=== PATIENT | female | born 1945 | race Caucasian/White ===

== ENCOUNTER 2017-04-06 16:54 | Emergency (ER) | payer MEDICARE, OTHER ==
[~2017-04-06] VITALS: Ht 167.6 cm; Wt 90.3 kg
[~2017-04-06 16:54] MED LIST: ACET500 PO; ALPR1 PO; AMLO5 PO; ASCO500 PO; ASPI325; ASPI325 PO; ASPI81CH; ASPI81CH PO; ATOR10; BIOTIN1 GM MC; CALCAVITD PO; CARV3.125; CHOL10002 PO; CILO50 PO; CLOB.05TC; CLOP75; CLOP75 PO; CYAN1000 PO; CYAN1000I PO; CYAN500; CYAN500 PO; Cranberry300 MG PO; DIPASPER; DIPH50 PO; DOC250; DOCU100; DONE5; ESTRACE CREAM; FENO160; FENOFIBRATE; FERR325; FISH1000 PO; FLUO20; FLUO20 PO; FOLI1; FOLI400 PO; FURO20; HYDACE10B PO; HYDACE5 PO; HYDHCL25; HYDMOR2 PO; HYDR1TAB94 PO; IBUP400 PO; INSR10I; INSUASPI; INSUASPI SC; INSULANI; INSULANI SC; INSULANPEN INJ; INSULANPEN SC; IRON150C PO; Isosorbide Dini30 MG; LANTUS; LANTUS SUBD; LEVFLO500; LEVOXYL; LEVSOD100; LEVSOD125; LEVSOD125 PO; LEVSOD150 PO; LISI10; LORA.5 PO; LORA1 PO; LOSA50 PO; MAGOXI400 PO; MEGA BIOTIN10000 MCG PO; METF500; METO10; METO5A; MORP30; MORP30 PO; MORP60ER PO; MS CONTIN; NEBI10; NEBI5; NEBI5 PO; NITR.6SL PO; NITR100CA PO; NULEV; Nitrostat0.4 MG SL; Non-Aspirin Ex500 MG PO; Norco 5-325 Ta1 EACH PO; Novolog Fl100 UNIT/1 INJ; OMEP20ER; OMEP20ER PO; ONDA4ODT MM; ONDA4ODT SL; OXYC10TA19 PO; OXYC1TAB11 PO; PANT40 PO; POTASSIUM GLUCONATE; POTCHL20ER; PRAM.125; PROM25 PO; QUET25 PO; VENL150ER PO; VENL25 PO; VITAMIN B12 2500 MCG PO; VITNEPH PO; ZOLP10
[2017-04-06] MEDS ORDERED: SERT50 PO (18:07)
[2017-04-06] MEDS ORDERED: NITR.4SL SL (18:08)
[2017-04-06] MEDS ORDERED: Robaxin500 MG PO (18:32)
[2017-04-06] MEDS ORDERED: Norco 5-325 Ta1 EACH PO (18:32)
[2017-10-22] MEDS ORDERED: ANTACID CHEWAB1 EACH PO (12:26)
[2017-10-22] MEDS ORDERED: CYAN500 PO (12:27)
[2017-10-22] MEDS ORDERED: BIOTIN5000 MCG PO (12:27)
[2017-10-22] MEDS ORDERED: Hydrocodone-Ap1 EA23 PO (12:29)
[2017-10-22] MEDS ORDERED: Revlimid10 MG PO (12:30)
[2017-10-22] MEDS ORDERED: INSULANPEN PO ×2 (12:31→15:57)
[2017-10-22] MEDS ORDERED: TERA5 PO (12:31)
[2017-10-22] MEDS ORDERED: NITR.4SL SL (12:32)
[2017-10-22] MEDS ORDERED: IBU400 MG PO (15:58)
[2017-10-27] MEDS ORDERED: ASCO500 PO (13:02)
[2017-10-27] MEDS ORDERED: CLOP75 PO (13:02)
[2017-10-27] MEDS ORDERED: CARV6.25 PO (13:03)
[2017-10-27] MEDS ORDERED: Ferrous Sulfat325 M2 PO (13:08)
[2018-03-04] MEDS ORDERED: HYDCHL25 PO (19:20)
[2018-03-04] MEDS ORDERED: Isosorbide Dini30 MG PO (19:21)
== END 2017-04-06 20:04 | disposition home or self-care (01) ==
LOC: ER 16:54
DX: S32.10XA Unspecified fracture of sacrum, initial encounter for closed fracture (principal); E11.9 Type 2 diabetes mellitus without complications; I25.10 Atherosclerotic heart disease of native coronary artery without angina pectoris; Z79.899 Other long term (current) drug therapy; Z79.4 Long term (current) use of insulin; Z79.82 Long term (current) use of aspirin; Z91.041 Radiographic dye allergy status; Z88.0 Allergy status to penicillin; Z88.8 Allergy status to other drugs, medicaments and biological substances; Z86.73 Personal history of transient ischemic attack (TIA), and cerebral infarction without residual deficits; Z90.49 Acquired absence of other specified parts of digestive tract; Z90.89 Acquired absence of other organs; Z87.891 Personal history of nicotine dependence; W19.XXXA Unspecified fall, initial encounter
CPT/HCPCS: 72100; 72170; 96372; 99283; J1885

== ENCOUNTER 2017-04-24 22:54 | Inpatient (IN) | payer MEDICARE, OTHER ==
[~2017-04-24] VITALS: Ht 167.6 cm; Wt 83.9 kg
[~2017-04-24 22:54] MED LIST changes: +NITR.4SL SL; +Robaxin500 MG PO; +SERT50 PO
[2017-04-25 00:40] LABS: Calcium, Ionized (POC) 1.03 mmol/L (1.10-1.46); Chloride (POC) 93 mmol/L (98-108); Creatinine (POC) 1.3 mg/dL (0.6-1.0); Glucose (ISTAT POC) 210 mg/dL (70-99); Hemoglobin (POC) 13.6 g/dL (12.0-16.0); Potassium (POC) 3.8 mmol/L (3.5-5.5); Sodium (POC) 126 mmol/L (135-148); Total CO2 (POC) 21 mmol/L (21-32)
[2017-04-25 00:42] LABS: BASOPHILS ABSOLUTE AUTO 0.16 K/mm3 (0.00-0.23); BASOPHILS PERCENT AUTO 1 % (0-2); EOSINOPHILS ABSOLUTE AUTO 0.04 K/mm3 (0.00-0.68); EOSINOPHILS PERCENT AUTO 0 % (0-6); Hematocrit 36.7 % (33.0-51.0); Hemoglobin 12.4 g/dL (11.5-16.0); IMMATURE GRAN ABSOLUTE AUTO 0.15 K/mm3 (0.00-0.10); IMMATURE GRAN PERCENT AUTO 1 % (0-1); LYMPHOCYTES ABSOLUTE AUTO 2.53 K/mm3 (0.84-5.20); LYMPHOCYTES PERCENT AUTO 15 % (21-46); MONOCYTES ABSOLUTE AUTO 1.36 K/mm3 (0.16-1.47); MONOCYTES PERCENT AUTO 8 % (4-13); Mean Corpuscular HGB 27.1 pg (26.0-34.0); Mean Corpuscular HGB Conc 33.8 g/dL (31.5-36.5); Mean Corpuscular Volume 80 fL (80-100); Mean Platelet Volume 9.4 fL (9.1-12.4); NEUTROPHILS ABSOLUTE AUTO 12.91 K/mm3 (1.96-9.15); NEUTROPHILS PERCENT AUTO 75 % (41-73); RDW Coefficient Variation 13.7 % (11.7-14.2); RDW Standard Deviation 39.3 fL (35.1-46.3); Red Blood Cell Count 4.57 M/mm3 (3.80-5.20); White Blood Cell Count 17.15 K/mm3 (4.00-11.30)
[2017-04-25 00:43] LABS: Platelet Count 1015 K/mm3 (150-400)
[2017-04-25 00:55] LABS: Albumin, Blood 3.9 g/dL (3.4-5.0); Albumin/Globulin Ratio 0.9 (0.8-1.8); Bilirubin, Total 0.4 mg/dL (0.1-1.0); Bun/Creatinine Ratio 19.4 (12.0-20.0); Calcium, Blood 9.7 mg/dL (8.5-10.1); Creatinine, Blood 1.08 mg/dL (0.40-1.00); Globulin, Blood 4.2 g/dL (2.2-4.0); Potassium, Blood 3.8 mmol/L (3.5-5.5); Total Protein, Blood 8.1 g/dL (6.4-8.2)
[2017-04-25] MEDS ORDERED: IBUPROFEN200 MG PO (01:07)
[2017-04-25 14:39] LABS: Source, Urine Clean Catch
[2017-04-25 14:43] LABS: Bilirubin, Urine Neg (Neg); Blood, Urine 2+ (Neg); Glucose Qualitative, Urine Neg (Neg); Ketones, Urine Neg (Neg); Leukocyte Esterase, Urine 2+ (Neg); Nitrite, Urine Neg (Neg); Protein, Urine 2+ (Neg); Specific Gravity, Urine 1.015 (1.003-1.022); Urobilinogen, Urine NORM (Normal)
[2017-04-25 14:49] LABS: Appearance, Urine Clear (Clear); Color, Urine Yellow (P-Yellow)
[2017-04-25 14:50] LABS: Bacteria Many /hpf; Red Blood Cells, Urine 0-2 /hpf (0-2); Squamous Epithelial Cells Few /hpf (Few); White Blood Cells, Urine 25-50 /hpf (0-5)
[2017-04-27 05:02] LABS: BASOPHILS ABSOLUTE AUTO 0.18 K/mm3 (0.00-0.23); BASOPHILS PERCENT AUTO 1 % (0-2); EOSINOPHILS ABSOLUTE AUTO 0.14 K/mm3 (0.00-0.68); EOSINOPHILS PERCENT AUTO 1 % (0-6); Hematocrit 35.6 % (33.0-51.0); Hemoglobin 11.5 g/dL (11.5-16.0); IMMATURE GRAN ABSOLUTE AUTO 0.07 K/mm3 (0.00-0.10); IMMATURE GRAN PERCENT AUTO 1 % (0-1); LYMPHOCYTES ABSOLUTE AUTO 1.54 K/mm3 (0.84-5.20); LYMPHOCYTES PERCENT AUTO 11 % (21-46); MONOCYTES ABSOLUTE AUTO 1.05 K/mm3 (0.16-1.47); MONOCYTES PERCENT AUTO 7 % (4-13); Mean Corpuscular HGB 27.5 pg (26.0-34.0); Mean Corpuscular HGB Conc 32.3 g/dL (31.5-36.5); Mean Platelet Volume 9.2 fL (9.1-12.4); NEUTROPHILS ABSOLUTE AUTO 11.73 K/mm3 (1.96-9.15); NEUTROPHILS PERCENT AUTO 80 % (41-73); Platelet Count 792 K/mm3 (150-400); RDW Standard Deviation 43.7 fL (35.1-46.3); Red Blood Cell Count 4.18 M/mm3 (3.80-5.20); White Blood Cell Count 14.71 K/mm3 (4.00-11.30)
[2017-04-27 05:04] LABS: Mean Corpuscular Volume 85 fL (80-100)
[2017-04-27 05:37] LABS: Anion Gap 6 mmol/L (6-16); Blood Urea Nitrogen 19 mg/dL (8-24); Bun/Creatinine Ratio 21.5 (12.0-20.0); CO2, Blood 28 mmol/L (21-32); Calcium, Blood 8.7 mg/dL (8.5-10.1); Chloride, Blood 99 mmol/L (98-108); Creatinine, Blood 0.88 mg/dL (0.40-1.00); Glomerular Filtration Rate >60 (60-); Glucose, Blood 113 mg/dL (70-99); Potassium, Blood 3.8 mmol/L (3.5-5.5); Sodium, Blood 133 mmol/L (136-145)
[2017-04-30] MEDS ORDERED: Amlodipine Bes2.5 MG PO (12:57)
[2017-04-30] MEDS ORDERED: ASPI81CH PO (12:58)
[2017-04-30] MEDS ORDERED: Miacalcin I200 IU/ML IM (12:59)
[2017-04-30] MEDS ORDERED: FENT50TP TOP (13:00)
[2017-04-30] MEDS ORDERED: CIPR250 PO (13:00)
[2017-04-30] MEDS ORDERED: LEVEMIR FL100 UNIT/1 SC (13:01)
[2017-04-30] MEDS ORDERED: METO5A PO (13:03)
[2017-04-30] MEDS ORDERED: LEVSOD125 PO (13:03)
[2017-04-30] MEDS ORDERED: SENN187 PO (13:04)
[2017-04-30] MEDS ORDERED: Docusate Sodiu100 M1 PO (13:05)
[2017-10-22] MEDS ORDERED: ANTACID CHEWAB1 EACH PO (12:26)
[2017-10-22] MEDS ORDERED: CYAN500 PO (12:27)
[2017-10-22] MEDS ORDERED: BIOTIN5000 MCG PO (12:27)
[2017-10-22] MEDS ORDERED: Hydrocodone-Ap1 EA23 PO (12:29)
[2017-10-22] MEDS ORDERED: Revlimid10 MG PO (12:30)
[2017-10-22] MEDS ORDERED: TERA5 PO (12:31)
[2017-10-22] MEDS ORDERED: INSULANPEN PO ×2 (12:31→15:57)
[2017-10-22] MEDS ORDERED: NITR.4SL SL (12:32)
[2017-10-22] MEDS ORDERED: IBU400 MG PO (15:58)
[2017-10-27] MEDS ORDERED: ASCO500 PO (13:02)
[2017-10-27] MEDS ORDERED: CLOP75 PO (13:02)
[2017-10-27] MEDS ORDERED: CARV6.25 PO (13:03)
[2017-10-27] MEDS ORDERED: Ferrous Sulfat325 M2 PO (13:08)
[2018-03-04] MEDS ORDERED: HYDCHL25 PO (19:20)
[2018-03-04] MEDS ORDERED: Isosorbide Dini30 MG PO (19:21)
== END 2017-04-30 13:34 | disposition home health service (06) | DRG 552 ==
LOC: ER 22:54 → MEDS 04-25 01:20 → ENPENDDIS 04-30 10:00 → MEDS 04-30 13:34
PROVIDERS: Emergency Medicine; Internal Medicine
PROC: 3E0234Z Introduction of Serum, Toxoid and Vaccine into Muscle, Percutaneous Approach (ICD-10-PCS; principal; 2017-04-25)
DX: S32.031A Stable burst fracture of third lumbar vertebra, initial encounter for closed fracture (principal); E11.22 Type 2 diabetes mellitus with diabetic chronic kidney disease; E11.40 Type 2 diabetes mellitus with diabetic neuropathy, unspecified; S32.19XA Other fracture of sacrum, initial encounter for closed fracture; N39.0 Urinary tract infection, site not specified; E87.1 Hypo-osmolality and hyponatremia; E11.51 Type 2 diabetes mellitus with diabetic peripheral angiopathy without gangrene; F03.90 Unspecified dementia, unspecified severity, without behavioral disturbance, psychotic disturbance, mood disturbance, and anxiety; W01.0XXA Fall on same level from slipping, tripping and stumbling without subsequent striking against object, initial encounter; Y92.009 Unspecified place in unspecified non-institutional (private) residence as the place of occurrence of the external cause; E78.5 Hyperlipidemia, unspecified; I25.10 Atherosclerotic heart disease of native coronary artery without angina pectoris; B96.89 Other specified bacterial agents as the cause of diseases classified elsewhere; Z23 Encounter for immunization; F32.9 Major depressive disorder, single episode, unspecified; F41.9 Anxiety disorder, unspecified; M79.7 Fibromyalgia; R33.9 Retention of urine, unspecified; D47.3 Essential (hemorrhagic) thrombocythemia; I12.9 Hypertensive chronic kidney disease with stage 1 through stage 4 chronic kidney disease, or unspecified chronic kidney disease; N18.3 Chronic kidney disease, stage 3 (moderate)
CPT/HCPCS: 36415; 70450; 74176; 74220; 80047; 80048; 80053; 81001; 82947; 85014; 85025; 87077; 87086; 87186; 92610; 96361; 96374; 96375; 97110; 97116; 97163; 97165; 97530; 97535; 99285; G8978; G8979; G8987; G8988; J0360; J0630; J1170; J1650; J1815; J2405; J2765; J3010; J7030; J7120

== ENCOUNTER 2017-09-07 05:09 | Emergency (ER) | payer MEDICARE, OTHER ==
[~2017-09-07] VITALS: Ht 167.6 cm; Wt 83.5 kg
[~2017-09-07 05:09] MED LIST changes: +Amlodipine Bes2.5 MG PO; +CIPR250 PO; +Docusate Sodiu100 M1 PO; +FENT50TP TOP; +IBUPROFEN200 MG PO; +LEVEMIR FL100 UNIT/1 SC; +METO5A PO; +Miacalcin I200 IU/ML IM; +SENN187 PO
[2017-09-07 05:41] LABS: BASOPHILS ABSOLUTE AUTO 0.13 K/mm3 (0.00-0.23); BASOPHILS PERCENT AUTO 1 % (0-2); EOSINOPHILS ABSOLUTE AUTO 0.22 K/mm3 (0.00-0.68); EOSINOPHILS PERCENT AUTO 2 % (0-6); Hemoglobin 11.7 g/dL (11.5-16.0); IMMATURE GRAN ABSOLUTE AUTO 0.04 K/mm3 (0.00-0.10); IMMATURE GRAN PERCENT AUTO 0 % (0-1); LYMPHOCYTES ABSOLUTE AUTO 1.27 K/mm3 (0.84-5.20); LYMPHOCYTES PERCENT AUTO 14 % (21-46); MONOCYTES ABSOLUTE AUTO 0.87 K/mm3 (0.16-1.47); MONOCYTES PERCENT AUTO 9 % (4-13); Mean Corpuscular HGB Conc 31.6 g/dL (31.5-36.5); Mean Corpuscular Volume 85 fL (80-100); NEUTROPHILS ABSOLUTE AUTO 6.76 K/mm3 (1.96-9.15); NEUTROPHILS PERCENT AUTO 73 % (41-73); Platelet Count 572 K/mm3 (150-400); RDW Coefficient Variation 14.6 % (11.7-14.2); RDW Standard Deviation 45.4 fL (35.1-46.3); Red Blood Cell Count 4.34 M/mm3 (3.80-5.20); White Blood Cell Count 9.29 K/mm3 (4.00-11.30)
[2017-09-07 06:05] LABS: Alanine Aminotransfer (ALT/SGP 22 U/L (12-78); Albumin, Blood 3.7 g/dL (3.4-5.0); Albumin/Globulin Ratio 1.1 (0.8-1.8); Alk Phos 94 U/L (50-136); Anion Gap 9 mmol/L (6-16); Aspartate Aminotrans (AST/SGOT 18 U/L (12-37); Bilirubin, Total 0.3 mg/dL (0.1-1.0); Blood Urea Nitrogen 15 mg/dL (8-24); Bun/Creatinine Ratio 16.1 (12.0-20.0); CO2, Blood 27 mmol/L (21-32); Calcium, Blood 8.7 mg/dL (8.5-10.1); Chloride, Blood 104 mmol/L (98-108); Creatinine, Blood 0.93 mg/dL (0.40-1.00); Globulin, Blood 3.5 g/dL (2.2-4.0); Glomerular Filtration Rate >60 (60-); Glucose, Blood 67 mg/dL (70-99); Potassium, Blood 3.1 mmol/L (3.5-5.5); Sodium, Blood 140 mmol/L (136-145); Total Protein, Blood 7.2 g/dL (6.4-8.2)
[2017-09-07 06:49] LABS: Source, Urine Clean Catch
[2017-09-07 07:00] LABS: Bilirubin, Urine Neg (Neg); Blood, Urine Neg (Neg); Glucose Qualitative, Urine Neg (Neg); Ketones, Urine Neg (Neg); Leukocyte Esterase, Urine Neg (Neg); Nitrite, Urine Neg (Neg); Protein, Urine Neg (Neg); Urobilinogen, Urine NORM (Normal); pH, Urine 6.5 (5.0-8.0)
[2017-09-07 07:04] LABS: Appearance, Urine Clear (Clear); Color, Urine Yellow (P-Yellow)
== END 2017-09-07 08:40 | disposition home or self-care (01) ==
LOC: ER 05:09
PROVIDERS: Emergency Medicine
DX: E11.649 Type 2 diabetes mellitus with hypoglycemia without coma (principal); E87.6 Hypokalemia; E78.00 Pure hypercholesterolemia, unspecified; I10 Essential (primary) hypertension; F32.9 Major depressive disorder, single episode, unspecified; F41.9 Anxiety disorder, unspecified; I25.10 Atherosclerotic heart disease of native coronary artery without angina pectoris; Z88.0 Allergy status to penicillin; Z88.8 Allergy status to other drugs, medicaments and biological substances; Z91.09 Other allergy status, other than to drugs and biological substances; Z79.4 Long term (current) use of insulin; Z79.899 Other long term (current) drug therapy; Z79.82 Long term (current) use of aspirin; Z87.891 Personal history of nicotine dependence; Z86.73 Personal history of transient ischemic attack (TIA), and cerebral infarction without residual deficits
CPT/HCPCS: 80053; 81003; 82947; 85025

== ENCOUNTER 2017-10-31 06:11 | Emergency (ER) | payer MEDICARE, OTHER ==
[~2017-10-31] VITALS: Ht 167.6 cm; Wt 81.2 kg
[~2017-10-31 06:11] MED LIST changes: +ANTACID CHEWAB1 EACH PO; +BIOTIN5000 MCG PO; +CARV6.25 PO; +Ferrous Sulfat325 M2 PO; +Hydrocodone-Ap1 EA23 PO; +IBU400 MG PO; +INSULANPEN PO; +Revlimid10 MG PO; +TERA5 PO
[2017-10-31 06:40] LABS: BASOPHILS ABSOLUTE AUTO 0.29 K/mm3 (0.00-0.23); BASOPHILS PERCENT AUTO 3 % (0-2); EOSINOPHILS ABSOLUTE AUTO 0.56 K/mm3 (0.00-0.68); EOSINOPHILS PERCENT AUTO 7 % (0-6); Hematocrit 27.9 % (33.0-51.0); Hemoglobin 8.8 g/dL (11.5-16.0); IMMATURE GRAN ABSOLUTE AUTO 0.03 K/mm3 (0.00-0.10); IMMATURE GRAN PERCENT AUTO 0 % (0-1); LYMPHOCYTES ABSOLUTE AUTO 1.46 K/mm3 (0.84-5.20); LYMPHOCYTES PERCENT AUTO 17 % (21-46); MONOCYTES ABSOLUTE AUTO 1.25 K/mm3 (0.16-1.47); MONOCYTES PERCENT AUTO 15 % (4-13); Mean Corpuscular HGB 27.2 pg (26.0-34.0); Mean Corpuscular HGB Conc 31.5 g/dL (31.5-36.5); Mean Corpuscular Volume 86 fL (80-100); Mean Platelet Volume 9.8 fL (9.1-12.4); NEUTROPHILS ABSOLUTE AUTO 4.89 K/mm3 (1.96-9.15); NEUTROPHILS PERCENT AUTO 58 % (41-73); Platelet Count 679 K/mm3 (150-400); RDW Coefficient Variation 16.2 % (11.7-14.2); RDW Standard Deviation 50.5 fL (35.1-46.3); Red Blood Cell Count 3.23 M/mm3 (3.80-5.20); White Blood Cell Count 8.48 K/mm3 (4.00-11.30)
[2017-10-31 07:00] LABS: Albumin, Blood 3.1 g/dL (3.4-5.0); Albumin/Globulin Ratio 0.8 (0.8-1.8); Bilirubin, Total 0.3 mg/dL (0.1-1.0); Bun/Creatinine Ratio 18.7 (12.0-20.0); Calcium, Blood 8.3 mg/dL (8.5-10.1); Creatinine, Blood 1.07 mg/dL (0.40-1.00); Globulin, Blood 3.8 g/dL (2.2-4.0); Total Protein, Blood 6.9 g/dL (6.4-8.2); Troponin I 0.128 ng/mL (0.000-0.040)
== END 2017-10-31 08:20 | disposition home or self-care (01) ==
LOC: ER 06:11
PROVIDERS: Emergency Medicine
DX: R07.9 Chest pain, unspecified (principal); D64.9 Anemia, unspecified; E11.9 Type 2 diabetes mellitus without complications; I10 Essential (primary) hypertension; E78.00 Pure hypercholesterolemia, unspecified; I25.2 Old myocardial infarction; Z88.0 Allergy status to penicillin; Z88.8 Allergy status to other drugs, medicaments and biological substances; Z91.09 Other allergy status, other than to drugs and biological substances; Z79.899 Other long term (current) drug therapy; Z79.82 Long term (current) use of aspirin; Z79.4 Long term (current) use of insulin; Z86.73 Personal history of transient ischemic attack (TIA), and cerebral infarction without residual deficits; Z87.891 Personal history of nicotine dependence
CPT/HCPCS: 36415; 71046; 80053; 84484; 85025; 93005; 93010; 96374; 99285-25; J3010

== ENCOUNTER 2018-04-10 06:13 | Day surgery (SDC) | payer MEDICARE, OTHER ==
[~2018-04-10] VITALS: Ht 165.1 cm; Wt 79.0 kg
[~2018-04-10 06:13] MED LIST changes: +BIOTIN10000 MC1 PO; -BIOTIN5000 MCG PO; +HYDCHL25 PO; +Hytrin2 MG PO; +Isosorbide Dini30 MG PO; +LOSARTAN POTAS100 MG PO; -TERA5 PO; +VITAMIN B-125000 MC2 PO
--- NOTE | 2018-04-10 11:00 | NUR ---
PT RETURNED TO RECOVERY ROOM ON BED. PT IS A&O X 3. PT DENIES CHEST PAIN. LEFT FEMORAL GROIN SITE SOFT NON-TENDER WITH NO HEMATOMA, NO BLEEDING WITH INTACT DRESSING. PT UP ON BED TINSLEY TO VOID. CALL LIGHT IN REACH.
--- NOTE | 2018-04-10 11:25 | NUR ---
PT C/O 10/10 RIGHT POSTERIOR LEG PAIN, VERBAL ORDER FROM DR. LOWRY RECIEVED FOR FENTANYL PRN PAIN MANAGEMENT. REPORT TO SARA URIBE RN FOR THIS RN LUNCH BREAK.
[2018-04-10] MEDS ORDERED: ASPI325 PO (11:43)
--- NOTE | 2018-04-10 12:11 | NUR ---
RESUMED CARE OF PT AT THIS TIME. PT APPEARS MORE RELAXED AT THIS TIME, RESTING SUPINE WITH BED IN REVERSE TRENDELENBERG POSITION. EYES CLOSED. AT BEDSIDE. WILL CONTINUE TO MONITOR.
--- NOTE | 2018-04-10 13:35 | NUR ---
PT MEDICATED WITH FENTANYL 50 MCG IVP FOR PAIN TO RLE. DR. LOWRY PREVIOUSLY TO BEDSIDE TO EVALUATE RIGHT LEG. PLAN IS TO TAKE PT BACK INTO SUPPLY SERVICE WORKER FOR REPEAT PERIPHERAL ANGIOGRAM. FAN RUNNER SURGEON PAGED FOR CONSULT ON PATIENT. RLE REMAINS SWOLLEN, FIRM, AND WARM TO TOUCH. DP/PT PULSES FOUND WITH DOPPLER. PT DENIES "BURNING" SENSATION SHE PREVIOUSLY C/O. WILL CONTINUE TO MONITOR.
--- NOTE | 2018-04-10 15:54 | NUR ---
ICU ADMIT PT ARRIVES TO ICU 12 AT 1525 FROM [facility], ACCOMPANIED BY [facility] RN AND TECH. PT HAS 2 ACCESS SITES TO LEFT GROIN WHICH HAVE MYNX CLOSURE DEVICES IN PLACE. SITE SOFT, NONTENDER, NO BLEEDING/BRUISING/HEMATOMA FORMATION. PT'S RIGHT LEG SLIGHTLY PINK, WARM TO TOUCH, DP PULSE VIA DOPPLER MARKED FOR FUTURE ASSESSMENTS. PT'S RIGHT CALF FIRM TO TOUCH. PT ABLE TO FLEX AND EXTEND FOOT AND ROTATE IT SIDE TO SIDE. PT HAS NUMBNESS/TINGLING TO LOWER EXTREMITIES AT BASELINE. DR. Lujan TO BEDSIDE, STATES DR. HAIR HAS BEEN CONSULTED TO MONITOR RLE. DR. HAIR TO BEDSIDE SHORTLY AFTER ARRIVAL TO UNIT - STATES TO MONITOR FOR INABILITY TO MOVE FOOT, LOSS OF PULSE, SIGNIFICANT CHANGE IN COLOR TO EXTREMITY. PT HAS PIV SALINE LOCKED. PT'S TO BEDSIDE. WILL CONTINUE TO MONITOR GROIN SITES AND R LEG FOR CHANGES.
--- NOTE | 2018-04-10 18:00 | NUR ---
SHIFT SUMMARY PT STABLE SINCE ARRIVAL FROM [facility]. LEFT GROIN ACCESS SITES WITHOUT BLEEDING OR BRUISING. RIGHT CALF REMAINS TIGHT, WARM TO TOUCH. TIGHTNESS DOES NOT APPEAR TO BE INCREASING. PT DENIES INCREASED PAIN. PT CONTINUES TO BE ABLE TO MOVE FOOT, PULSES REMAIN PALPABLE TO FOOT. RIGHT LOWER LEG ELEVATED ON PILLOWS. VITAL SIGNS STABLE, THOUGH PT DID SPIKE FEVER THIS EVENING. DR. Lujan NOTIFIED - PT MED WITH [facility] FOR PAIN, WHICH THE INCLUDED ACETAMINOPHEN SHOULD ADDRESS FEVER. EXTRA BLANKETS REMOVED FROM PAIN. PT USES CALL LIGHT FOR NEEDS. REMAINS ON BEDREST UNTIL 2100 PER ORDERS. WILL CONTINUE TO MONITOR PT AND GIVE HANDOFF REPORT TO ONCOMING RN WHEN AVAILABLE.
--- NOTE | 2018-04-10 19:00 | NUR ---
ASSUMED CARE ASSUMED CARE FROM NEGRITA. PT RESTING QUIELTY. RIGHT LEG ELEVATED. CALF FIRM AND WARM TO TOUCH. PT ABLE TO FLEX AND EXTEND FOOT. ALSO, ABLE TO MOVE FOOT SIDE TO SIDE. LEFT GROIN SITE STABE. SOFT TO PALP. NO BLEEDING OR HEMATOMA. FAMILY AT BEDSIDE.
--- NOTE | 2018-04-10 20:01 | NUR ---
ASSESSMENT PT LAYING IN BED WITH FAMILY AT BEDSIDE. REPORTS PAIN 6/10 TO RIGHT SHOULDER AND HIPS. PT STATES,"IT IS SO MUCH BETTER THAN BEFORE SHE GAVE ME THOSE MEDS. IT IS A CONSTANT PAIN THAT I DEAL WITH ALL THE TIME". LUNGS CLEAR ON 1 LITER O2 VIA NC. RESP EVEN AND NONLABORED. HEART RATE REGULAR, BP STABLE. DENIES CHEST PAIN OR PRESSURE. BT+ ABD SOFT AND NONTENDER, PT STATES,"I HAVE NAUSEA OFF AND ON ALL THE TIME. IT IS NORMAL FOR ME, BUT I'M DOING ALRIGHT RIGHT NOW". LEFT GROIN STABLE AND SOFT TO PALP. NO BLEEDING OR HEMATOMA. IV TO LEFT AC SALINE LOCKED, SITE CLEAR. RIGHT LEG WARM TO TOUCH AND SLIGHTLY PINK TO CALF. CALF FIRM TO TOUCH. PT NANETTE TO FLEX AND EXTEND FOOT. MOVES FOR SIDE TO SIDE. REPORTS NUMBNESS AND TIMGLING TO BILAT LOWER EXT AT BASELINE. PEDAL PULSES PER DOPPLER NO CHANGE FROM CONFIRMING WITH DAYS RN. RIGHT LEG ELEVATED ON TWO PILLOWS. WILL CONT TO MONITOR LEFT GROIN SITE AND RIGHT LEG FOR CHANGES.
--- NOTE | 2018-04-10 20:49 | NUR ---
HS MEDS BLOOD GLUCOSE 218, INSULIN GIVEN. HS MEDS GIVEN. LEFT GROIN STABLE. ELEVATED HOB 10 DEGREES. RIGHT CALF REMAINS WARM TO TOUCH AND FIRM. PT MOVING FOOT FLEX AND EXTENTION. MOVES FOOT SIDE TO SIDE. SON AT BEDSIDE. PT ASKED,"IS THAT A CAT OUT THERE"? POINTS TO NURSES STATION. EXPLAINED THAT THERE IS NO CAT OR DOGS IN THE ICU. PT STATES,"I THOUGHT I SAW A CAT A LITTLE WHILE AGO". PT WITH HX DEMENTIA. SON AT BEDSIDE
--- NOTE | 2018-04-10 22:34 | NUR ---
GROIN CHECK PT SLEEPING WITH RIGHT LEG ELEVATED ON TWO PILLOWS. PT AWAKENS EASILY. C/O NAUSEA, REQUESTED CRACKERS-GIVEN. ASSISTED WITH BEDPAN. PT OVER FLOWED BED TINSLEY. IVAN CARE AND LINEN CHANGE DONE. LEFT GROIN STABLE, SOFT TO PALP. NO BLEEDING OR HEMATOMA. RIGHT CALF FIRM AND WARM TO TOUCH. PT ABLE TO MOVE FOOT SIDE TO SIDE, FLEX AND EXTEND. PEDAL PULSES PER DOPPLER.
--- NOTE | 2018-04-10 22:45 | NUR ---
CALL TO DR MORTON REGARDING NAUSEA. ORDER RECEIVED FOR ZOFRAN
--- NOTE | 2018-04-10 22:58 | NUR ---
ZOFRAN PT MED WITH ZOFRAN FOR NAUSEA. PT STATES,"IT IS STILL KIND OF THERE BUT THE CRACKERS HELPED".
--- NOTE | 2018-04-10 23:50 | NUR ---
REASSESSMENT PT SLEEPING WITH SON AT BEDSIDE. PT AWAKENS EASILY. DENIES PAIN OR NAUSEA AT THIS TIME. LUNGS CLEAR ON 1 LITER O2 VIA NC. RESP EVEN AND NONLABORED. DENIES SOB OR COUGH. HEART RATE REGULAR. BP STABLE. BT+ ABD SOFT AND NONTENDER. LEFT GROIN STABLE, NO BLEEDING OR HEMATOMA. RIGHT CALF WARM AND FIRM TO TOUCH. DECREASED FIRMNESS NOTED TO CALF FROM PREVIOUS ASSESSMENT. PT FLEXING AND EXTENDING FOOT. MOVING FOOT SIDE TO SIDE. PEDAL PULSES PER DOPPER. VSS
--- NOTE | 2018-04-11 02:15 | NUR ---
PT SLEEPING AWAKENS EASILY. ASSISTED WITH TURNING TO LEFT. LEFT GROIN STABLE. RIGHT CALF WARM WITH DECREASED TIGHTNESS NOTED. PEDAL PULSES PRESENT. PT MOVING FOOT WITHOUT DIFFICULTY
--- NOTE | 2018-04-11 03:20 | NUR ---
HYPERTENSION PT SLEEPING. BP 176/78 MAP [address] MORTON NOTIFIED. RECEIVED ORDER FOR ONE TIME DOSE LABETOLOL 5 MG IV
--- NOTE | 2018-04-11 04:00 | NUR ---
REASSESSMENT PT RESTING QUIETLY. PT STATES,"THE PAIN IS BETTER". PT REPOSITIONED. LEFT GROIN STABLE. NO HEMATOMA NO BLEEDING. RIGHT CALF DECREASED FIRMNESS NOTED. PEDAL PULSES PER DOPPLER. BP IMPROVED AFTER LABETOLOL.
--- NOTE | 2018-04-11 06:27 | NUR ---
SHIFT SUMMARY PT AWAKE SITTING UP IN BED. UP TO BSC WITH ONE ASSIST. VOIDED YELLOW URINE. BACK TO BED. RIGHT CALF WITH DECREASED FIRMNESS THROUGHOUT THE NIGHT. PEDAL PULSES PER DOPPLER. MOVING FOOT SIDE TO SIDE. FLEXION AND EXTENTION OF FOOT WITHOUT DIFFICULTY. MED WITH LABETOLOL 5MG ONCE DURING THE NIGHT FOR HYPERTENSION WITH GOOD RESULTS. REPORT TO ON COMING NURSE
--- NOTE | 2018-04-11 08:15 | NUR ---
ASSUMPTION OF CARE - TRANSFER OF CARE Assumed care of pt at 0715 from Rachel RN. Pt on 1 LPM NC. Does not wear O2 at home. Pt and off going nurse state decreased size of RLE. Dr Le in to see patient. States patient is okay to go home. Requested this RN call to schedule follow up appointment for patient on Sunday 4 pm. Appointment scheduled. Report given to oncoming nurseFlorina.
--- NOTE | 2018-04-11 09:00 | NUR ---
ASSUMPTION OF CARE PATIENT SITTING IN BED, VISITING WITH . PT PLEASANT AND COOPERATIVE. AGREE WITH PREVIOUS NURSE'S SHIFT ASSESSMENT. PATIENT ALERT AND ORIENTED X 4, FORGETFUL AT TIMES. PATIENT WEAK, 1 PERSON ASSIST. PT STATES SHE HAS BEEN USING CANE TO GET AROUND AT HOME. PATIENT AFEBRILE. PATIENT HAS NO COMPLAINTS OF PAIN AT THIS TIME. LUNGS CLEAR THROUGHOUT. PATIENT SATTING WELL ON RA. PATIENT IN SR, HR IN THE 80S. BP STABLE. R CALF TIGHT AND TENDER TO PALPATION. PATIENT AND OFF GOING NURSE STATE THAT LEG IS MUCH LESS PAINFUL AND MUCH LESS SWOLLEN THAN YESTERDAY. DOPPLER PULSES TO BLES. EXTREMITIES WARM AND PALE. GI WNL. WNL. PATIENT HAS TWO ACCESS SITES AT LEFT FEMORAL SITE. NO BLEEDING, BRUISING, OR HEMATOMA NOTED. PATIENT HAS SMALL KNOT AT SITE FROM PRE-EXISTING ANUERYSM, DR LOWRY AWARE PER NURSE. IV FLUSHED AND SALINE LOCKED. BED LOW, CALL LIGHT IN REACH. WILL CONTINUE TO MONITOR PATIENT FREQUENTLY THROUGHOUT SHIFT.
--- NOTE | 2018-04-11 10:25 | NUR ---
PATIENT GIVEN DISCHARGE INFORMATION. NURSE WENT OVER INFORMATION WITH PATIENT AND HER . BOTH STATE THAT THEY UNDERSTAND INSTRUCTIONS AND FOLLOW UP APPOINTMENT. PATIENT HELPED TO GET DRESSED. NURSE TOOK PATIENT OUT IN WHEELCHAIR TO AWAITING 'S CAR. DISCHARGE COMPLETE.
== END 2018-04-11 10:25 | disposition home or self-care (01) ==
LOC: MHTC 06:13 → ICUW 06:13 → MHTC 06:30 → BC 15:05 → ICUW 15:10 → MHTC 04-11 10:25
DX: I73.9 Peripheral vascular disease, unspecified (principal); E11.9 Type 2 diabetes mellitus without complications; I10 Essential (primary) hypertension; Z88.0 Allergy status to penicillin; Z88.8 Allergy status to other drugs, medicaments and biological substances; Z79.82 Long term (current) use of aspirin; Z79.4 Long term (current) use of insulin; Z79.891 Long term (current) use of opiate analgesic; Z79.899 Other long term (current) drug therapy
CPT/HCPCS: 36247; 37225; 75625; 75710; 75716; 75774; 82947; 85347; 99152; 99153; C1725; C1760; C1769; C1884; C1885; C1887; C1894; C2623; J1644; J2250; J2405; J3010; J7030; J7040; Q9967

== ENCOUNTER 2018-05-16 21:48 | Inpatient (IN) | payer MEDICARE, OTHER ==
[~2018-05-16] VITALS: Ht 165.1 cm; Wt 80.4 kg
[2018-05-16 22:10] LABS: BASOPHILS ABSOLUTE AUTO 0.07 K/mm3 (0.00-0.23); BASOPHILS PERCENT AUTO 1 % (0-2); EOSINOPHILS PERCENT AUTO 3 % (0-6); Hematocrit 35.3 % (33.0-51.0); Hemoglobin 11.2 g/dL (11.5-16.0); IMMATURE GRAN ABSOLUTE AUTO 0.02 K/mm3 (0.00-0.10); IMMATURE GRAN PERCENT AUTO 0 % (0-1); LYMPHOCYTES ABSOLUTE AUTO 1.82 K/mm3 (0.84-5.20); LYMPHOCYTES PERCENT AUTO 26 % (21-46); MONOCYTES ABSOLUTE AUTO 0.65 K/mm3 (0.16-1.47); MONOCYTES PERCENT AUTO 9 % (4-13); Mean Corpuscular HGB 26.2 pg (26.0-34.0); Mean Corpuscular HGB Conc 31.7 g/dL (31.5-36.5); Mean Corpuscular Volume 83 fL (80-100); Mean Platelet Volume 9.8 fL (9.1-12.4); NEUTROPHILS ABSOLUTE AUTO 4.29 K/mm3 (1.96-9.15); NEUTROPHILS PERCENT AUTO 61 % (41-73); Platelet Count 561 K/mm3 (150-400); RDW Coefficient Variation 14.9 % (11.7-14.2); RDW Standard Deviation 44.9 fL (35.1-46.3); Red Blood Cell Count 4.27 M/mm3 (3.80-5.20); White Blood Cell Count 7.05 K/mm3 (4.00-11.30)
[2018-05-16 22:25] LABS: Albumin, Blood 3.7 g/dL (3.4-5.0); Bilirubin, Total 0.3 mg/dL (0.1-1.0); Bun/Creatinine Ratio 18.3 (12.0-20.0); Calcium, Blood 8.8 mg/dL (8.5-10.1); Creatinine, Blood 1.09 mg/dL (0.40-1.00); Globulin, Blood 3.6 g/dL (2.2-4.0); Potassium, Blood 3.5 mmol/L (3.5-5.5); Total Protein, Blood 7.3 g/dL (6.4-8.2); Troponin I 0.035 ng/mL (0.000-0.040)
[2018-05-17 01:46] LABS: International Normalized Ratio 0.98; Prothrombin Time Results 10.4 Sec (9.7-11.5)
[2018-05-17] MEDS ORDERED: ACET325 PO (10:20)
[2018-05-17] MEDS ORDERED: MELA3 PO (10:20)
--- NOTE | 2018-05-17 11:40 | NUR ---
Echocardiogram completed.
--- NOTE | 2018-05-17 14:03 | NUR ---
TELEPHONE REPORT RECEIVED FROM NISHANT DIAZ RN.
--- NOTE | 2018-05-17 15:16 | NUR ---
The pt reports that her pain is minimal at 4/10, described as a mild pressure. States that her breathing is nearly normal, just a "very tiny bit" more difficult than usual. I observe no tachypnea, cyanosis, diaphoresis, or apparent discomfort. She is lying down, resting in bed, V/S stable on room air, and her at the bedside. NSR on telemetry
--- NOTE | 2018-05-17 18:41 | NUR ---
While Dr. Grissom was here to see the patient, and during the conversation about possible angiogram in the morning, the pt developed very uncomfortable chest pain, 8/10, with dyspnea. Noted ST depression by telemetry monitoring. NTG sublingual was given a total of two times and oxygen was applied 2 l/min via nc. The pt had relief of her pain to a mild pressure now rated 4/10 by the patient and resolution of her dyspnea. she is now talking with her and 2 grandchildren at the beside, talking pleasantly, laughing and appears much more comfortable.
--- NOTE | 2018-05-18 07:20 | NUR ---
SHIFT SUMMARY PATIENT VERY PLEASENT AND COOPERTIVE THROUGHOUT THE NIGHT. AT THE BEGINNING OF THE SHIFT PATIENT STATED THAT HER CHEST PAIN WAS AT A TOLERABLE LEVEL OF 3/10. NITRO PASTE IN PLACE PER EMAR. AT APPROX 2200 PATIENT BEGAN COMPLAINING OF WORSENING CHEST PAIN THAT WAS A 5/10, PAIN MEDICATION WAS GIVEN PER EMAR AND PATIENT'S PAIN WAS BROUGHT BACK DOWN TO A 3/10. PATIENT WAS THEN ABLE TO FALL ASLEEP AND APPEARED TO REST WELL FOR SEVERAL HOURS. HEPARING GTT RUNNING PER ORDERS. PATIENT PROVIDED TYLENOL FOR COMPLAINTS OF A HEADACHE WELL AN ICE PACK FOR RELEIF. PATIENT HAD COMPLAINTS OF WORSENING CHEST PAIN AGAIN THIS AM AT APPROX 0600 BUT PATIENT REPORTED THAT IT WENT AWAY ON IT'S OWN. PATIENT CURRENTLY RESTING IN BED VISITING WITH FAMILY. REPORT GIVEN TO LUCA CAPONE.
--- NOTE | 2018-05-18 08:30 | NUR ---
0830 The patient complained of chest pain and was given a NTG which gave her some relief; however, she then had nausea and vomiting. She was very anxious and expressed a sense of doom during this. Dr. Grissom was called and new orders recieved. Dr. Burk was also contacted and orders received for antinausea medication.
--- NOTE | 2018-05-18 09:08 | NUR ---
Pastoral care visit conducted. Pt was recumbent in her bed accompanied by her at the bedside. Pt was cordial and appeared slightly uncomfortable as she kept repositioning in bed to get comfortable. Pt and spouse express their current well-being and state that their family have been supportive through this process. Their mehnaz is important to them and related discussion ensued. Pastoral encouragement, normalization of felt emotion, and empathic presence given. I offered prayer for consolation and comfort. I will remain available for further PC support prospectively.
--- NOTE | 2018-05-18 10:14 | NUR ---
0940 The pt again c/o chest pain just as the heart center staff were here to prep for the angiogram. She was given a NTG sublingual which reduced her pain from 10/10 to 9/10; then she was given IV morphine as ordered and had some additional relief before being taken down to the lab for the procedure.
--- NOTE | 2018-05-18 11:35 | NUR ---
REPORT FROM KATRIN BLOCK RN OF [employer] TECHNICIAN. PATIENT COMING TO ICU 16 WITH GROIN SHE[address] IN PL[address]. OF NOTE, PATIENT VOMITTED DURING THE PROCEDURE, POSSIBLY ASPIRATED.
--- NOTE | 2018-05-18 11:54 | NUR ---
PATIENT ARRIVED 1145. LEFT GROIN SHEATH WITH A-LINE IN PLACE. PRESSURE BAG INFLATED. GROIN SITE SOFT TO THE TOUCH. PALPABLE PEDAL PULSE
--- NOTE | 2018-05-18 13:41 | NUR ---
MD VISIT. DR. PERALES IN AT 1215. NO NEW ORDERS.
--- NOTE | 2018-05-18 15:15 | NUR ---
PUT PATIENT ON BEDPAN X2. OVERFLOWED. LINEN CHANGED X2. OOZING FROM GROIN SHEATH. CALLED DR. CAREY AND RECEIVED ORDER FOR FAGAN CATHETER INSERTION. ORDERS TO PULL SHEATH AT 1500. 16 FR FAGAN CATHETER PLACED USING STERILE TECHNIQUE WITH ASSISTANCE FROM TIFFANY RANDHAWA RN
[2018-05-18 15:37] LABS: Source, Urine Catheter
[2018-05-18 15:43] LABS: Appearance, Urine Clear (Clear); Bilirubin, Urine Neg (Neg); Blood, Urine 2+ (Neg); Color, Urine Yellow (P-Yellow); Glucose Qualitative, Urine 4+ (Neg); Ketones, Urine Neg (Neg); Leukocyte Esterase, Urine Neg (Neg); Nitrite, Urine Neg (Neg); Protein, Urine 1+ (Neg); Urobilinogen, Urine NORM (Normal); pH, Urine 6.5 (5.0-8.0)
--- NOTE | 2018-05-18 15:43 | NUR ---
LATE ENTRY 1114 ASSISTED PATIENT TO BSC FOR BM. BRIGHT RED BLOOD WITH WATERY STOOL. DR. HERNANDEZ CALLED. EXPECTED BECAUSE POLYP WAS REMOVED
--- NOTE | 2018-05-18 16:09 | NUR ---
SHEATH REMAINS IN PLACE D/T SBT. HYDRALAZINE GIVEN
[2018-05-18 16:17] LABS: Bacteria Rare /hpf; Squamous Epithelial Cells Few /hpf (Few); White Blood Cells, Urine 0-2 /hpf (0-5)
--- NOTE | 2018-05-18 17:30 | NUR ---
PULLED SHEATH AT 1645 AND HELD PRESSURE UNTIL 1705. CLEAR OCCLUSIVE DRESSING PLACED OVER CLEAN FOLDED 2X2. NO OOZING. NO HEMATOMA, SOFT TO PALP.
--- NOTE | 2018-05-18 18:37 | NUR ---
CALLED INTO ROOM BY . PATIENT SITTING UP AND VOMITING. LINEN CHANGED. LEFT LEG BOUND DOWN WITH BLANKET. LOG ROLLED TO LEFT SIDE.
--- NOTE | 2018-05-18 19:08 | NUR ---
GROIN SITE STABLE. REPORT TO LIBORIO FERRELL.
--- NOTE | 2018-05-19 02:10 | NUR ---
1900: PT SLEEPING LIGHTLY. [place] NATALIE ARTERIAL PUNCTURE SITE EXAMINED, NO BLEED- ING OR HEMATOMA. DISTAL L FOOT WARM, PULSES WEAK. MONITOR ST, TEMP 100.2. NO APNEA NOTED, O2 @ 3L/ NASAL CANNULA. PT DROWSY BUT VISITING W/ FAMILY, USING TELEPHONE. SPEECH HALTING, WORD SELECTION HESITANCY BUT ORIENTED, FOLLOWING DIRECTION. DENIES NAUSEA AT THIS TIME, TASHA SIPS OF WATER. 2100: ADMIS TO NAUSEA, STATES STOMACH IS "YUCK". PHENERGAN 25 MG IV GIVEN, PT BECAME PROGRESSIVELY DROWSY, CONVERSATION & DIRECTION FOLLOWING DECLINING. UNCOVERS SELF, MOVING LEGS, DOESN'T APPEAR TO BE ABLE TO GET UP BY SELF. INDICATES NEED FOR COMMODE. REORIENTED TO FAGAN CATH W/OUT INDICATION OF UNDERSTANDING OR ACCEPTANCE. DANGLED AT BEDSIDE, ASSISTED TO BSC, RYLAN D/C'D. PT RELIEVED OF URGENCY, 2 PERSON ASSIST BACK TO BED, FELL IMMED TO SLEEP. PT HAS DENIED NAUSEA AFTER PHENERGAN, ABLE TO TAKE MEDS W/ JUICE WHEN UP.
[2018-05-19 05:21] LABS: Hematocrit 33.8 % (33.0-51.0); Hemoglobin 10.7 g/dL (11.5-16.0); Mean Corpuscular HGB 26.2 pg (26.0-34.0); Mean Corpuscular HGB Conc 31.7 g/dL (31.5-36.5); Mean Corpuscular Volume 83 fL (80-100); Mean Platelet Volume 9.7 fL (9.1-12.4); Platelet Count 542 K/mm3 (150-400); RDW Coefficient Variation 15.3 % (11.7-14.2); RDW Standard Deviation 46.1 fL (35.1-46.3); Red Blood Cell Count 4.08 M/mm3 (3.80-5.20); White Blood Cell Count 16.77 K/mm3 (4.00-11.30)
[2018-05-19 05:45] LABS: Albumin, Blood 3.6 g/dL (3.4-5.0); Anion Gap 8 mmol/L (6-16); Blood Urea Nitrogen 21 mg/dL (8-24); CO2, Blood 26 mmol/L (21-32); Calcium, Blood 8.7 mg/dL (8.5-10.1); Chloride, Blood 102 mmol/L (98-108); Cholesterol 213 mg/dL (50-200); Glucose, Blood 252 mg/dL (70-99); HDL Cholesterol 43 mg/dL (>39); LDL/HDL RATIO 2.7; Low Density Lipoprotein Chol 116 mg/dL (0-110); Phosphorus, Blood 3.1 mg/dL (2.5-4.9); Potassium, Blood 4.4 mmol/L (3.5-5.5); Sodium, Blood 136 mmol/L (136-145); Triglycerides 268 mg/dL (30-160); Very Low Density Lipoprot Chol 53 mg/dL (6-32)
[2018-05-19 05:48] LABS: Bun/Creatinine Ratio 21.2 (12.0-20.0); Creatinine, Blood 0.99 mg/dL (0.40-1.00); Glomerular Filtration Rate 58 (60-)
--- NOTE | 2018-05-19 07:23 | NUR ---
[id number]: SLEEPING AT LONG INTERVALS. CALLED APPROPRIATELY ~ 0215, ASSIST TO BEDSIDE COMMODE. ANSWERS QUESTIONS APPROPRIATELY, BEARS WT , USING QUAD CANE, 1 PERSON ASSIST. DOES NOT REMEMBER BEING UP PREVIOUSLY, RYLAN D/Chay PROCEEDURE. ABLE TO TURN SELF IN BED. UP W/ ASSIST IN AM AFTER TRIGGERING BED ALARM.
--- NOTE | 2018-05-19 08:44 | NUR ---
ASSUMED CARE REPORT FROM LIBORIO GAITAN AT 0700. ASSISTED TO CHAIR FOR BREAKFAST. DENIES CHEST PAIN. SOME PAIN IN ABDOMEN AROUND GROIN SITE. GROIN SITE IS STABLE, NO HEMATOMA, SOFT TO THE TOUCH
--- NOTE | 2018-05-19 10:30 | NUR ---
DR. PERALES IN. CLARIFIED REASON FOR PREDNISONE (FOR REPORTED ALLERGY TO CONTRAST) AND LOOKED AT GROWTH ON RIGHT BUTTOCKS. SHE RECOMMENDED TO PATIENT THAT SHE HAVE HER PCP REFER HER TO EMPLOYMENT AGENCY MANAGER
--- NOTE | 2018-05-19 19:23 | NUR ---
PATIENT IN BED WITH BED ALARM ON. REPORT TO NATA Riggins RN
[2018-05-20 04:22] LABS: BASOPHILS ABSOLUTE AUTO 0.06 K/mm3 (0.00-0.23); BASOPHILS PERCENT AUTO 0 % (0-2); EOSINOPHILS PERCENT AUTO 0 % (0-6); Hematocrit 31.6 % (33.0-51.0); Hemoglobin 9.8 g/dL (11.5-16.0); IMMATURE GRAN ABSOLUTE AUTO 0.07 K/mm3 (0.00-0.10); IMMATURE GRAN PERCENT AUTO 1 % (0-1); LYMPHOCYTES ABSOLUTE AUTO 1.19 K/mm3 (0.84-5.20); LYMPHOCYTES PERCENT AUTO 8 % (21-46); MONOCYTES ABSOLUTE AUTO 0.97 K/mm3 (0.16-1.47); MONOCYTES PERCENT AUTO 7 % (4-13); Mean Corpuscular HGB 25.5 pg (26.0-34.0); Mean Corpuscular Volume 82 fL (80-100); Mean Platelet Volume 10.1 fL (9.1-12.4); NEUTROPHILS ABSOLUTE AUTO 12.12 K/mm3 (1.96-9.15); NEUTROPHILS PERCENT AUTO 84 % (41-73); Platelet Count 512 K/mm3 (150-400); RDW Coefficient Variation 15.2 % (11.7-14.2); RDW Standard Deviation 45.4 fL (35.1-46.3); Red Blood Cell Count 3.84 M/mm3 (3.80-5.20); White Blood Cell Count 14.41 K/mm3 (4.00-11.30)
[2018-05-20 04:52] LABS: Calcium, Blood 8.6 mg/dL (8.5-10.1); Creatinine, Blood 1.07 mg/dL (0.40-1.00); Potassium, Blood 4.1 mmol/L (3.5-5.5)
[2018-05-20 05:02] LABS: Percent Saturation 14.9 % (15.0-50.0)
--- NOTE | 2018-05-20 07:30 | NUR ---
ASSUMED CARE OF PATIENT; SEE ASSESSMENT CHARTING FOR DETAILS. PATIENT PLEASANT AND COOPERATIVE; DENIES DISCOMFORT. SPEECH CLEAR BUT SOMETIMES HAS EXPRESSIVE APHASIA AND DIFFICULTY DETERMINING WHICH WORD TO DESCRIBE HER NEEDS ETC. OVERALL MANAGES TO CONVEY/COMMUNICATE EASILY. UP TO BSC WITH SBA AND USE OF CANE OR WALKER. ABLE TO DANGLE ON OWN. LUNGS CLEAR; DECREASED IN BASES; ROOM AIR AND BIOX. >95%. SBP 150'S AT THIS TIME. OVERALL STATUS IMPROVED.
--- NOTE | 2018-05-20 13:00 | NUR ---
DR. PERALES, HOSPITALIST HERE; PLANS TO D/C PATIENT TO HOME TODAY.
--- NOTE | 2018-05-20 13:21 | NUR ---
Per admit trigger, I met with Mrs. Arango to offer spiritual support. She admits to feeling overwhelmed with her illness. She worries about her who is home alone with power outage. We spoke at length. she responded well to spiritual direction and prayer. Mrs. Arango showed signs of calm by conclusion of visit. I will remain available.
--- NOTE | 2018-05-20 14:30 | NUR ---
SPOUSE GOING TO BE ABLE TO TAKE PATIENT HOME; HAS CHAINS ON VEHICLE TIRES TO MANAGE THE SNOW/ICE.
--- NOTE | 2018-05-20 15:00 | NUR ---
IV SITES DC'D AND PATIENT DRESSED TO GO HOME. SPOUSE ARRIVED; WILL GIVE D/C INSTRUCTIONS TO BOTH PATIENT AND SPOUSE.
[2018-05-20] MEDS ORDERED: FISH OIL 1,0001 EAC2 PO (15:09)
[2018-05-20] MEDS ORDERED: MIRALAX17 GM PO (15:10)
--- NOTE | 2018-05-20 15:20 | NUR ---
DC INSTRUCTIONS GIVEN TO PATIENT AND HER SPOUSE; SIGNED ACKNOWLEDGEMENT. 2 PRESCRIPTIONS CALLED INTO [facility] (PATIENTS' PHARMACY).
== END 2018-05-20 15:25 | disposition home or self-care (01) | DRG 247 ==
LOC: ER 21:48 → ICUW 05-17 01:11 → ERHOLD 05-17 01:11 → ICUW 05-17 14:34 → PCU 05-17 14:52 → ICUW 05-18 10:44
PROVIDERS: Emergency Medicine; Internal Medicine; ADMIT Family Medicine
PROC: 027034Z Dilation of Coronary Artery, One Artery with Drug-eluting Intraluminal Device, Percutaneous Approach (ICD-10-PCS; principal; 2018-05-17)
DX: I21.4 Non-ST elevation (NSTEMI) myocardial infarction (principal); K86.1 Other chronic pancreatitis; E11.65 Type 2 diabetes mellitus with hyperglycemia; I12.9 Hypertensive chronic kidney disease with stage 1 through stage 4 chronic kidney disease, or unspecified chronic kidney disease; E11.22 Type 2 diabetes mellitus with diabetic chronic kidney disease; N18.3 Chronic kidney disease, stage 3 (moderate); I73.9 Peripheral vascular disease, unspecified; Z79.4 Long term (current) use of insulin; E78.5 Hyperlipidemia, unspecified; E03.9 Hypothyroidism, unspecified; E66.9 Obesity, unspecified; R11.2 Nausea with vomiting, unspecified; Z95.5 Presence of coronary angioplasty implant and graft; Z91.048 Other nonmedicinal substance allergy status; D47.3 Essential (hemorrhagic) thrombocythemia; Z86.73 Personal history of transient ischemic attack (TIA), and cerebral infarction without residual deficits; Z95.1 Presence of aortocoronary bypass graft; K21.9 Gastro-esophageal reflux disease without esophagitis; Z87.891 Personal history of nicotine dependence; D63.1 Anemia in chronic kidney disease; I25.110 Atherosclerotic heart disease of native coronary artery with unstable angina pectoris
CPT/HCPCS: 36415; 51702; 71046; 75710; 80048; 80053; 80061; 80069; 81001; 82728; 82947; 83036; 83540; 83550; 83690; 83735; 83880; 84484; 85025; 85027; 85049; 85347; 85610; 85730; 93005; 93010; 93306; 93455; 96365; 96366; 97161; 97530; 99152; 99153; 99285-25; C1725; C1769; C1874; C1887; C9600; J0360; J1200; J1644; J1720; J1815; J2250; J2270; J2405; J2550; J3010; J7030; J7040; Q0163; Q9967

== ENCOUNTER 2018-07-11 01:39 | Observation (INO) | payer MEDICARE, OTHER ==
[~2018-07-11] VITALS: Ht 170.2 cm; Wt 81.7 kg
[~2018-07-11 01:39] MED LIST changes: +ACET325 PO; +FISH OIL 1,0001 EAC2 PO; +MELA3 PO; +MIRALAX17 GM PO
[2018-07-11] MEDS ORDERED: HYDCHL25 PO (01:47)
[2018-07-11 01:56] LABS: BASOPHILS ABSOLUTE AUTO 0.09 K/mm3 (0.00-0.23); BASOPHILS PERCENT AUTO 1 % (0-2); EOSINOPHILS PERCENT AUTO 2 % (0-6); Hematocrit 34.6 % (33.0-51.0); Hemoglobin 10.7 g/dL (11.5-16.0); IMMATURE GRAN ABSOLUTE AUTO 0.02 K/mm3 (0.00-0.10); IMMATURE GRAN PERCENT AUTO 0 % (0-1); LYMPHOCYTES ABSOLUTE AUTO 1.36 K/mm3 (0.84-5.20); LYMPHOCYTES PERCENT AUTO 14 % (21-46); MONOCYTES ABSOLUTE AUTO 1.12 K/mm3 (0.16-1.47); MONOCYTES PERCENT AUTO 11 % (4-13); Mean Corpuscular HGB 25.5 pg (26.0-34.0); Mean Corpuscular HGB Conc 30.9 g/dL (31.5-36.5); Mean Corpuscular Volume 83 fL (80-100); NEUTROPHILS ABSOLUTE AUTO 7.06 K/mm3 (1.96-9.15); NEUTROPHILS PERCENT AUTO 72 % (41-73); Platelet Count 528 K/mm3 (150-400); RDW Coefficient Variation 15.2 % (11.7-14.2); RDW Standard Deviation 45.8 fL (35.1-46.3); Red Blood Cell Count 4.19 M/mm3 (3.80-5.20); White Blood Cell Count 9.85 K/mm3 (4.00-11.30)
[2018-07-11 02:18] LABS: Albumin, Blood 3.6 g/dL (3.4-5.0); Albumin/Globulin Ratio 1.2 (0.8-1.8); Bilirubin, Total 0.2 mg/dL (0.1-1.0); Creatinine, Blood 1.43 mg/dL (0.40-1.00); Globulin, Blood 3.1 g/dL (2.2-4.0); Total Protein, Blood 6.7 g/dL (6.4-8.2)
[2018-07-11 04:14] LABS: Source, Urine Clean Catch
[2018-07-11] MEDS ORDERED: AMLO5 PO (04:14)
[2018-07-11 04:17] LABS: Bilirubin, Urine Neg (Neg); Blood, Urine Neg (Neg); Glucose Qualitative, Urine 1+ (Neg); Ketones, Urine Neg (Neg); Leukocyte Esterase, Urine Neg (Neg); Nitrite, Urine Neg (Neg); Protein, Urine Neg (Neg); Specific Gravity, Urine 1.005 (1.003-1.022); Urobilinogen, Urine NORM (Normal)
[2018-07-11 04:20] LABS: Appearance, Urine Clear (Clear); Color, Urine Yellow (P-Yellow)
[2018-07-11 04:29] LABS: U Amphetamine Screen Not Detected; U Barbituate Screen Not Detected; U Benzodiazapine Screen Not Detected; U Buprenorphine Screen Not Detected; U Cannabinoids Screen Not Detected; U Cocaine Screen Not Detected; U Methadone Screen Not Detected; U Methamphetamine Screen Not Detected; U Opiates Screen DETECTED; U Oxycodone Screen Not Detected; U Phencyclidine Screen Not Detected; U Propoxyphene Screen Not Detected
--- NOTE | 2018-07-11 06:31 | NUR ---
SHIFT SUMMARY: PATIENT ARRIVED TO PCU2 AT APPROX 0510 VIA GURNEY FROM ED. PATIENT UNSTEADY ON FEET WITH STIFF JERKY MOVEMENTS. PATIENT ALERT AND ORIENTED TO SELF AND PLACE BUT NOT TIME, AT BEDSIDE. ORTHOSTATICS COMPLETED. PATIENT DROPPED FROM 153/71 TO 120/60 WITH ORTHOSTATICS (SEE VITALS). ADMISSION COMPLETED, PATIENT AND FAMILY ORIENTED TO ROOM, CALL LIGHT AND HOSPITAL POLICIES. BED LOW AND LOCKED WITH EXIT ALARM ON, CALL LIGHT WITHIN REACH.
--- NOTE | 2018-07-11 08:00 | NUR ---
pt laying in bed wakes easily, spouce at bedside. she is in good spirits, pleasand and cooperative with care, needs directing, she is alert, oriented to place and time, but takes her a bit of time to come up with correct answers, in conversation a few times she refered herself to be at home. lungs are clear t/o resp even and unlabored, denies any complaints of pain, but did state her breathing was heavy at times. she is sating 97% on r/a. hrr, tele in place, running sr at this time, no edema noted, ppp+2, cap refill <3sec, vs stable, afebrile, iv sites are clear and patent, btx4, abd flat soft nontender, voids without diff, skin c/w/d, some kind of bump in her buttocks cheeks, intact. maew, shank boner are weak. is able to ambulate, but a bit wobbly. osmany is a bit sluggish, but reactive. call light in reach.
[2018-07-11 08:29] LABS: Adenovirus Not Detected (NOT DETECT); Bordetella pertussis Not Detected (NOT DETECT); Chlamydophila pneumoniae Not Detected (NOT DETECT); Coronavirus 229E Not Detected (NOT DETECT); Coronavirus HKU1 Not Detected (NOT DETECT); Coronavirus NL63 Not Detected (NOT DETECT); Coronavirus OC43 Not Detected (NOT DETECT); Human Metapneumovirus Not Detected (NOT DETECT); Human Rhinovirus/Enterovirus Not Detected (NOT DETECT); Influenza A Not Detected (NOT DETECT); Influenza A/2009-H1 Not Detected (NOT DETECT); Influenza A/H1 Not Detected (NOT DETECT); Influenza A/H3 Not Detected (NOT DETECT); Influenza B Not Detected (NOT DETECT); Mycoplasma pneumoniae Not Detected (NOT DETECT); Parainfluenza Virus 1 Not Detected (NOT DETECT); Parainfluenza Virus 2 Not Detected (NOT DETECT); Parainfluenza Virus 3 Not Detected (NOT DETECT); Parainfluenza Virus 4 Not Detected (NOT DETECT); Respiratory Syncytial Virus Not Detected (NOT DETECT)
[2018-07-11 10:30] LABS: Hemoglobin 11.8 g/dL (11.5-16.0); Mean Corpuscular HGB 25.9 pg (26.0-34.0); Mean Corpuscular HGB Conc 31.1 g/dL (31.5-36.5); Mean Corpuscular Volume 84 fL (80-100); Mean Platelet Volume 10.1 fL (9.1-12.4); Platelet Count 589 K/mm3 (150-400); RDW Coefficient Variation 15.2 % (11.7-14.2); RDW Standard Deviation 46.4 fL (35.1-46.3); Red Blood Cell Count 4.55 M/mm3 (3.80-5.20); White Blood Cell Count 10.28 K/mm3 (4.00-11.30)
--- NOTE | 2018-07-11 10:37 | NUR ---
pt as ambulated by PDuaneT. did well with walker out in riddle. sat up in chair for a few minutes, then wanted back to bed. call light in reach.
[2018-07-11 10:46] LABS: Albumin, Blood 3.9 g/dL (3.4-5.0); Albumin/Globulin Ratio 1.1 (0.8-1.8); Bilirubin, Total 0.3 mg/dL (0.1-1.0); Bun/Creatinine Ratio 22.1 (12.0-20.0); Calcium, Blood 9.1 mg/dL (8.5-10.1); Creatinine, Blood 1.13 mg/dL (0.40-1.00); Globulin, Blood 3.4 g/dL (2.2-4.0); Potassium, Blood 4.2 mmol/L (3.5-5.5); Total Protein, Blood 7.3 g/dL (6.4-8.2)
--- NOTE | 2018-07-11 12:43 | NUR ---
RESTING IN BED, SPOUCE IN ROOM. NO COMPLAINTS, V.S. WERE STABLE, CALL LIGHT IN REACH.
--- NOTE | 2018-07-11 13:14 | NUR ---
pt left for medical floor via wheelchair with superintendent logging in attendence, and all her belongings. report was given to Chidi CAPONE.
--- NOTE | 2018-07-11 13:54 | NUR ---
Spiritual care visit conducted. Patient is struggling a bit to articulate her thoughts but has a very cheery disposition. Patient's Chidi is bedside and helps fill in details as they told me about the recent medical events that caused some disturbing behaviors in patient. I listened empathically, explored patient's spiritual beliefs, provided emotional support, encouraged self care for Chidi, provided a calming presence and provided prayer. Patient responded well to all interventions and showed signs of an elevated mood.
--- NOTE | 2018-07-11 14:08 | NUR ---
Advance Directive Education Conducted. I called patient's Chidi out of patient's room (because I did not want to alarm patient by the nature of the conversation) and asked if he was familiar with the advance directive. Patient had some idea and so I led in an introductory conversation about the importance and process of the advance directive. Chidi asked for a form and asked if they could read through the information and get back with me if they had questions. I affirmed that I would help anyway I could. I continue to remain available to patient and family.
--- NOTE | 2018-07-11 16:04 | NUR ---
SHIFT SUMMARY THE PATIENT WAS TRANSFERRED UP TO ROOM 306 FROM PCU #2. THE PATIENT IS A&O X4, AND A ONE PERSON STAND BY ASSIST. THE PATIENT IS S/L ON BOTH OF HER IVS. THE PATIENT WAS TRANSFERRED AFTER REPORT WAS CALLED TO THE FLOOR FROM RADHA GARCIA RN. THE PATIENT WAS BROUGHT UP VIA WHEELCHAIR WITH HER SPOUSE ACCOMPANYING HER. THE PATIENT IS RESTING AT THIS TIME, WILL CONTINUE TO MONITOR.
--- NOTE | 2018-07-12 05:44 | NUR ---
SHIFT SUMMARY PT ALERT WITH SOME CONFUSION NOTED. UP TO BATHROOM WITH FWW AND SBA. PT C/O BACK AND RIGHT SHOULDER PAIN DURING THE NIGHT, TYLENOL GIVEN. NO OTHER C/O'S NOTED, WILL CONTINUE TO MONITOR.
[2018-07-12 06:11] LABS: Calcium, Blood 8.9 mg/dL (8.5-10.1); Creatinine, Blood 1.05 mg/dL (0.40-1.00)
[2018-07-12] MEDS ORDERED: LOSA50 PO (12:05)
[2018-07-12] MEDS ORDERED: HYDCHL12.5 PO (12:05)
[2018-07-12] MEDS ORDERED: SERT50 PO (12:06)
[2018-07-12] MEDS ORDERED: Humalog100 UNIT/3 SC (12:07)
[2018-07-12] MEDS ORDERED: INSULANPEN SC (12:08)
[2018-07-12] MEDS ORDERED: Micro-K10 MEQ PO (12:08)
--- NOTE | 2018-07-12 15:01 | NUR ---
PATIENT DISCHARGE THE PATIENT WAS DISCHARGED HOME WITH HER SPOUSE, AFTER DISCHARGE INSTRUCTIONS WERE GIVEN TO THE PATIENT. THE PATIENT LEFT THE HOSPITAL WITHOUT CONCERN OR COMPLAINT.
== END 2018-07-12 14:38 | disposition home or self-care (01) ==
LOC: ER 01:39 → PCU 01:40 → MEDS 05:00 → PCU 05:10 → MEDS 13:15 → ENPENDDIS 07-12 11:28 → MEDS 07-12 14:38
PROVIDERS: Emergency Medicine; Internal Medicine; ADMIT Internal Medicine
DX: E11.649 Type 2 diabetes mellitus with hypoglycemia without coma (principal); R55 Syncope and collapse; E87.6 Hypokalemia; E87.1 Hypo-osmolality and hyponatremia; R07.81 Pleurodynia; E11.22 Type 2 diabetes mellitus with diabetic chronic kidney disease; I12.9 Hypertensive chronic kidney disease with stage 1 through stage 4 chronic kidney disease, or unspecified chronic kidney disease; N18.3 Chronic kidney disease, stage 3 (moderate); N17.9 Acute kidney failure, unspecified; E03.9 Hypothyroidism, unspecified; D50.9 Iron deficiency anemia, unspecified; Z79.02 Long term (current) use of antithrombotics/antiplatelets; Z79.82 Long term (current) use of aspirin; Z79.899 Other long term (current) drug therapy; E78.5 Hyperlipidemia, unspecified; Z86.73 Personal history of transient ischemic attack (TIA), and cerebral infarction without residual deficits; Z88.0 Allergy status to penicillin; Z88.8 Allergy status to other drugs, medicaments and biological substances
CPT/HCPCS: 36415; 70450; 71045; 80048; 80053; 81003; 82947; 83605; 85025; 85027; 87486; 87581; 87633; 87798; 96372; 96374; 97116; 97162; 97167; 97535; 99285-25; G0378; G0480; J1650

== ENCOUNTER 2019-01-29 16:58 | Inpatient (IN) | payer MEDICARE ==
[~2019-01-29] VITALS: Ht 165.1 cm; Wt 77.3 kg
[~2019-01-29 16:58] MED LIST changes: +ANTACID CALCIU215 MG; +B-125000 MC1 PO; +FOLBIC RF TABL1 EACH; +Humalog100 UNIT/3 SC; +Micro-K10 MEQ PO; +NOVOLOG FL100 UNIT/1 SC; +TERA5 PO
[2019-01-29] MEDS ORDERED: DULO60 PO (17:13)
[2019-01-29 18:52] LABS: BASOPHILS ABSOLUTE AUTO 0.17 K/mm3 (0.00-0.23); BASOPHILS PERCENT AUTO 1 % (0-2); EOSINOPHILS ABSOLUTE AUTO 0.17 K/mm3 (0.00-0.68); EOSINOPHILS PERCENT AUTO 1 % (0-6); Hematocrit 40.5 % (33.0-51.0); Hemoglobin 12.9 g/dL (11.5-16.0); IMMATURE GRAN ABSOLUTE AUTO 0.12 K/mm3 (0.00-0.10); IMMATURE GRAN PERCENT AUTO 1 % (0-1); LYMPHOCYTES ABSOLUTE AUTO 1.22 K/mm3 (0.84-5.20); LYMPHOCYTES PERCENT AUTO 9 % (21-46); MONOCYTES ABSOLUTE AUTO 0.97 K/mm3 (0.16-1.47); MONOCYTES PERCENT AUTO 7 % (4-13); Mean Corpuscular HGB 25.6 pg (26.0-34.0); Mean Corpuscular HGB Conc 31.9 g/dL (31.5-36.5); Mean Corpuscular Volume 80 fL (80-100); Mean Platelet Volume 9.6 fL (9.1-12.4); NEUTROPHILS ABSOLUTE AUTO 11.63 K/mm3 (1.96-9.15); NEUTROPHILS PERCENT AUTO 82 % (41-73); Platelet Count 907 K/mm3 (150-400); RDW Coefficient Variation 15.6 % (11.7-14.2); RDW Standard Deviation 44.3 fL (35.1-46.3); Red Blood Cell Count 5.04 M/mm3 (3.80-5.20); White Blood Cell Count 14.28 K/mm3 (4.00-11.30)
[2019-01-29 19:06] LABS: Albumin, Blood 3.7 g/dL (3.4-5.0); Albumin/Globulin Ratio 1.1 (0.8-1.8); Bilirubin, Total 0.3 mg/dL (0.1-1.0); Bun/Creatinine Ratio 28.6 (12.0-20.0); Calcium, Blood 9.1 mg/dL (8.5-10.1); Creatinine, Blood 0.98 mg/dL (0.40-1.00); Globulin, Blood 3.3 g/dL (2.2-4.0); Potassium, Blood 3.3 mmol/L (3.5-5.5)
[2019-01-29 19:11] LABS: Source, Urine Clean Catch
[2019-01-29 19:17] LABS: Bilirubin, Urine Neg (Neg); Blood, Urine 1+ (Neg); Glucose Qualitative, Urine Neg (Neg); Ketones, Urine Neg (Neg); Leukocyte Esterase, Urine 2+ (Neg); Nitrite, Urine Neg (Neg); Protein, Urine Neg (Neg); Specific Gravity, Urine 1.005 (1.003-1.022); Urobilinogen, Urine NORM (Normal)
[2019-01-29] MEDS ORDERED: FUROSEMIDE20 MG PO (19:25)
[2019-01-29] MEDS ORDERED: Isosorbide Mono30 MG PO (19:26)
[2019-01-29] MEDS ORDERED: Zoloft100 MG PO (19:28)
[2019-01-29 19:29] LABS: Appearance, Urine Hazy (Clear); Color, Urine Yellow (P-Yellow)
[2019-01-29 19:30] LABS: Bacteria Many /hpf; Squamous Epithelial Cells Few /hpf (Few)
[2019-01-29] MEDS ORDERED: ASPI325 PO (19:41)
[2019-01-29] MEDS ORDERED: ACET500 PO (20:14)
[2019-01-30 05:09] LABS: Mean Corpuscular HGB 25.8 pg (26.0-34.0); Mean Corpuscular HGB Conc 31.6 g/dL (31.5-36.5); Mean Corpuscular Volume 82 fL (80-100); Mean Platelet Volume 9.5 fL (9.1-12.4); Platelet Count 820 K/mm3 (150-400); RDW Coefficient Variation 15.5 % (11.7-14.2); RDW Standard Deviation 46.3 fL (35.1-46.3); Red Blood Cell Count 4.65 M/mm3 (3.80-5.20); White Blood Cell Count 14.73 K/mm3 (4.00-11.30)
[2019-01-30 05:31] LABS: Alanine Aminotransfer (ALT/SGP 175 U/L (12-78); Albumin, Blood 3.4 g/dL (3.4-5.0); Albumin/Globulin Ratio 1.1 (0.8-1.8); Alk Phos 104 U/L (50-136); Anion Gap 8 mmol/L (6-16); Aspartate Aminotrans (AST/SGOT 246 U/L (12-37); Bilirubin, Total 0.5 mg/dL (0.1-1.0); Blood Urea Nitrogen 24 mg/dL (8-24); CO2, Blood 27 mmol/L (21-32); Calcium, Blood 8.6 mg/dL (8.5-10.1); Chloride, Blood 101 mmol/L (98-108); Creatinine, Blood 0.96 mg/dL (0.40-1.00); Globulin, Blood 3.2 g/dL (2.2-4.0); Glomerular Filtration Rate >60 (60-); Glucose, Blood 215 mg/dL (70-99); Potassium, Blood 3.8 mmol/L (3.5-5.5); Sodium, Blood 136 mmol/L (136-145); Total Protein, Blood 6.6 g/dL (6.4-8.2)
--- NOTE | 2019-01-30 06:52 | NUR ---
PT GAVE STUDENT NURSE PERMISSION TO ASSIST WITH CARE ON 01/30/19.
--- NOTE | 2019-01-30 07:14 | NUR ---
SUMMARY PT BECAME CLAMMY AND NAUSEATED WHILE RECEIVING LEVAQUIN AND INTOLERANT OF IV BURNING WITH POTASSIUM EVEN THOUGH RUNNING NS AND K SIMULTANEOUSLY.I CALLED DR RDZ AND ADVISED OF ABOVE.ORDERS RECEIVED.PT WAS ABLE TO TAKE PO POTASSIUM AFTER IV MEDS STOPPED AND NAUSEA RESOLVED.STATES FEELS BETTER THIS AM.PT WAS ABLE TO GET SOME SLEEP. NPO THIS AM PENDING ORTHO CX.
[2019-01-30] MEDS ORDERED: HYDCHL25 PO (09:29)
--- NOTE | 2019-01-30 13:16 | NUR ---
INITIAL ASSESSMENT DONE AT 0900 INSTEAD OF DOCUMENTED TIME.
--- NOTE | 2019-01-30 13:22 | NUR ---
DR RAMIRES WAS IN, SPOKE WITH PATIENT AND SPOUSE. OBTAINED CONSENT FOR OC.
--- NOTE | 2019-01-30 15:10 | NUR ---
INTO SDS VIA PATIENT BED. History, Chart, Medications and Allergies reviewed before start of procedure.Patient confirms NPO status and agrees with scheduled surgery. Surgical site prepped with 2% Chlorhexidine cloth wipe. Lungs clear T/O to Auscultation.
--- NOTE | 2019-01-30 16:07 | NUR ---
01/30/19 1607 Kaity Echavarria PT ENTERED OR WITH FAGAN CATHETER
--- NOTE | 2019-01-30 17:40 | NUR ---
PATIENT RETURNED TO ROOM FROM PACU AT THIS TIME. AWAKE, GROGGY. VSS. STATES PAIN TO L HIP 10/, THEN APPEARS TO SLEEP. L HIP WITH AQUACEL DRESSING X 2 AND ADHESIVE SURGICAL DRESSING X 1. APPROX 3 CM SIXE RED DRAINAGE ON 1 AQUACEL DRESSING. MOVES FEET WHICH ARE PINK AND WARM. LS CLEAR, 2L O2 PER NC TO KEEP SATS >90%. HRR. PATIENT DENIES NAUSEA, CP, SOB. FC PATENT, DRAINING YELLOW URINE. FAMILY AT BEDSIDE. CONT TO MONITOR.
--- NOTE | 2019-01-30 17:43 | NUR ---
PT DOES NOT RATE PAIN EVEN WHEN SHOWED FACE CHART SHE SAID "IT HURTS"
--- NOTE | 2019-01-30 17:46 | NUR ---
LOWER DENTURES IN PT MOUTH
--- NOTE | 2019-01-30 17:47 | NUR ---
PAS IN PLACE
--- NOTE | 2019-01-30 17:48 | NUR ---
Mrs. Arango was tearful and deeply appreciaitive of prayer and spiritual encouragement. She reported a great deal of pain. LIBORIO hawk responded with pain meds. I met with spouse while pt in surgery. He became tearful and told me about pt's struggles with cancer. Affirmed obvious love and provided assurance of God's care and attention. Both pt and spouse appear to benefit from spiritual care. Special Education Coordinator services will remain available.
--- NOTE | 2019-01-30 18:50 | NUR ---
PATIENT STATES PAIN IMPROVED AFTER FENTANYL 25 MCG ADMIN. WILL REPORT TO NOC RN.
--- NOTE | 2019-01-31 05:03 | NUR ---
SHIFT SUMMARY PT HAS BEEN FORGETFUL AND CONFUSED. BED ALARM HAS BEEN ON ALL NIGHT. UPPER AQUACEL DRESSING CHANGED THIS SHIFT. PT GOT UP TO BEDSIDE COMMODE WITH 2X ASSIST, WALKER, AND GAIT BELT. HAD BM. FAGAN IN PLACE, FUNCTIONING, OFF FLOOR. PT REPOSITIONED MULT TIMES THIS SHIFT. PAIN HAS BEEN MANAGED WITH PAIN MED PER ORDERS. ASSISTED WITH ADL'S PRN. REPORTS NO CONCERNS/WANTS/NEEDS AT THIS TIME.
[2019-01-31 05:29] LABS: BASOPHILS ABSOLUTE AUTO 0.07 K/mm3 (0.00-0.23); BASOPHILS PERCENT AUTO 0 % (0-2); EOSINOPHILS ABSOLUTE AUTO 0.01 K/mm3 (0.00-0.68); EOSINOPHILS PERCENT AUTO 0 % (0-6); Hematocrit 30.6 % (33.0-51.0); Hemoglobin 9.4 g/dL (11.5-16.0); IMMATURE GRAN ABSOLUTE AUTO 0.12 K/mm3 (0.00-0.10); IMMATURE GRAN PERCENT AUTO 1 % (0-1); LYMPHOCYTES ABSOLUTE AUTO 0.76 K/mm3 (0.84-5.20); LYMPHOCYTES PERCENT AUTO 4 % (21-46); MONOCYTES ABSOLUTE AUTO 1.34 K/mm3 (0.16-1.47); MONOCYTES PERCENT AUTO 8 % (4-13); Mean Corpuscular HGB 25.3 pg (26.0-34.0); Mean Corpuscular HGB Conc 30.7 g/dL (31.5-36.5); Mean Corpuscular Volume 83 fL (80-100); Mean Platelet Volume 9.9 fL (9.1-12.4); NEUTROPHILS ABSOLUTE AUTO 15.09 K/mm3 (1.96-9.15); NEUTROPHILS PERCENT AUTO 87 % (41-73); Platelet Count 724 K/mm3 (150-400); RDW Coefficient Variation 15.8 % (11.7-14.2); RDW Standard Deviation 47.5 fL (35.1-46.3); Red Blood Cell Count 3.71 M/mm3 (3.80-5.20); White Blood Cell Count 17.39 K/mm3 (4.00-11.30)
[2019-01-31 05:50] LABS: Bun/Creatinine Ratio 20.2 (12.0-20.0); Calcium, Blood 8.4 mg/dL (8.5-10.1); Creatinine, Blood 1.09 mg/dL (0.40-1.00); Magnesium, Blood 1.9 mg/dL (1.6-2.4)
--- NOTE | 2019-01-31 23:28 | NUR ---
PT C/O CHEST PAIN AT APPROX 2200. PT REPORTS TAKING 2 NITRO DAILY FOR CP AT HOME. BP AND HR ELEVATED. 1 NITRO ADMINISTERED PER EMAR. PT GIVEN AN ADDITIONAL NITRO AFTER 5 MIN. VS RECHECKED. BP STABLE. HR SITTING AT 100. PT REPORTS FEELING MUCH BETTER AND DENIES CP. WILL CTM.
--- NOTE | 2019-02-01 05:18 | NUR ---
SHIFT SUMMARY: PT POD #2 FOR L HIP RODDING. AQUACEL AND SURGICAL TAPE CDI WITH ICE PACK IN PLACE. GIVEN NORCO FOR PAIN PER EMAR. PT FORGERTFUL AT TIMES WITH DISORGANIZED SPEECH. AT BEDSIDE IN BEGINNING OF SHIFT AND ABLE TO PROVIDE MOST INFORMATION. PT TRANSFERING FROM BED TO CHAIR WITH 2 MODERATE ASSIST AND FWW W/GB. FAGAN CATHETER REMOVED THIS MORNING AT APPROX 0510. WAITING FOR POST VOID. DENIES CP THIS MORNING. PT APPEARS TO BE RESTING COMFORTABLY AT THIS TIME.
--- NOTE | 2019-02-01 11:40 | NUR ---
REPORT GIVEN TO NURSE AT [facility] (MARYJANE).
--- NOTE | 2019-02-01 12:55 | NUR ---
DISCHARGE: PT EATING AND DRINKING, VOIDING, RECENT BM. PT WORKED WITH THERAPY TODAY. PT ANXIOUS WHEN UP AND MOVING. PT TO [facility] BY TRANSPORT WITH DRESSING SUPPLIES AND PAPERWORK. REPORT GIVEN EARLIER TODAY.
--- NOTE | 2019-02-01 13:01 | NUR ---
PT'S HAD PT'S BELONGINGS.
== END 2019-02-01 12:58 | DRG 481 ==
LOC: ER 16:58 → SURS 19:14
PROVIDERS: Emergency Medicine; Internal Medicine; Orthopaedic Surgery; ADMIT Internal Medicine
PROC: 0QS706Z Reposition Left Upper Femur with Intramedullary Internal Fixation Device, Open Approach (ICD-10-PCS; principal; 2019-01-30 16:15)
DX: S72.142A Displaced intertrochanteric fracture of left femur, initial encounter for closed fracture (principal); N39.0 Urinary tract infection, site not specified; K86.1 Other chronic pancreatitis; W19.XXXA Unspecified fall, initial encounter; I25.10 Atherosclerotic heart disease of native coronary artery without angina pectoris; E78.5 Hyperlipidemia, unspecified; I10 Essential (primary) hypertension; E03.9 Hypothyroidism, unspecified; M79.7 Fibromyalgia; E87.6 Hypokalemia; F32.9 Major depressive disorder, single episode, unspecified; E13.51 Other specified diabetes mellitus with diabetic peripheral angiopathy without gangrene; F03.90 Unspecified dementia, unspecified severity, without behavioral disturbance, psychotic disturbance, mood disturbance, and anxiety; Z86.73 Personal history of transient ischemic attack (TIA), and cerebral infarction without residual deficits; Z79.02 Long term (current) use of antithrombotics/antiplatelets; Z79.4 Long term (current) use of insulin; Z79.899 Other long term (current) drug therapy; Z88.0 Allergy status to penicillin; Z88.8 Allergy status to other drugs, medicaments and biological substances; Z95.1 Presence of aortocoronary bypass graft; Z95.5 Presence of coronary angioplasty implant and graft
CPT/HCPCS: 36415; 51702; 71045; 73502; 80048; 80053; 81001; 82947; 83735; 85025; 85027; 87077; 87086; 87186; 93005; 93010; 96374-59; 97116; 97162; 97166; 97530; 97535; 99285-25; A9270-GY; C1713; J1170; J1650; J1885; J1956; J2370; J2704; J3010; J3480; J7030; J7040; J7120

== ENCOUNTER 2019-02-28 17:09 | Inpatient (IN) | payer MEDICARE, OTHER ==
[~2019-02-28] VITALS: Ht 165.1 cm; Wt 69.1 kg
[~2019-02-28 17:09] MED LIST changes: +ADULT GLYCERIN1 EACH PR; +Cyclobenzaprine5 MG PO; +DULO60 PO; +FERSU300 PO; +FUROSEMIDE20 MG PO; +Isosorbide Mono30 MG PO; +MILK OF MA400 MG/5 M PO; +ONDA4 PO; +Zoloft100 MG PO
[2019-02-28] MEDS ORDERED: Fleet Enema132 ML PR (17:51)
[2019-02-28 18:00] LABS: BASOPHILS ABSOLUTE AUTO 0.08 K/mm3 (0.00-0.23); BASOPHILS PERCENT AUTO 1 % (0-2); EOSINOPHILS ABSOLUTE AUTO 0.03 K/mm3 (0.00-0.68); EOSINOPHILS PERCENT AUTO 0 % (0-6); Hematocrit 35.9 % (33.0-51.0); Hemoglobin 11.6 g/dL (11.5-16.0); IMMATURE GRAN ABSOLUTE AUTO 0.05 K/mm3 (0.00-0.10); IMMATURE GRAN PERCENT AUTO 0 % (0-1); LYMPHOCYTES ABSOLUTE AUTO 1.43 K/mm3 (0.84-5.20); LYMPHOCYTES PERCENT AUTO 11 % (21-46); MONOCYTES ABSOLUTE AUTO 0.96 K/mm3 (0.16-1.47); MONOCYTES PERCENT AUTO 7 % (4-13); Mean Corpuscular HGB 26.2 pg (26.0-34.0); Mean Corpuscular HGB Conc 32.3 g/dL (31.5-36.5); Mean Corpuscular Volume 81 fL (80-100); Mean Platelet Volume 10.3 fL (9.1-12.4); NEUTROPHILS ABSOLUTE AUTO 10.67 K/mm3 (1.96-9.15); NEUTROPHILS PERCENT AUTO 81 % (41-73); Platelet Count 971 K/mm3 (150-400); RDW Coefficient Variation 15.9 % (11.7-14.2); RDW Standard Deviation 47.1 fL (35.1-46.3); Red Blood Cell Count 4.43 M/mm3 (3.80-5.20); White Blood Cell Count 13.22 K/mm3 (4.00-11.30)
[2019-02-28 18:12] LABS: Source, Urine Voided
[2019-02-28 18:19] LABS: Bilirubin, Urine Neg (Neg); Blood, Urine Neg (Neg); Glucose Qualitative, Urine 1+ (Neg); Ketones, Urine 2+ (Neg); Leukocyte Esterase, Urine 1+ (Neg); Nitrite, Urine Neg (Neg); Protein, Urine 1+ (Neg); Urobilinogen, Urine 1+ (Normal); pH, Urine 6.5 (5.0-8.0)
[2019-02-28 18:24] LABS: Troponin I 0.042 ng/mL (0.000-0.040)
[2019-02-28 18:25] LABS: Appearance, Urine Hazy (Clear); Color, Urine Yellow (P-Yellow)
[2019-02-28 18:26] LABS: Amorphous Mod (0-Heavy); Bacteria Mod /hpf; Mucus Light (0-Heavy); Red Blood Cells, Urine 0-2 /hpf (0-2); Squamous Epithelial Cells Few /hpf (Few); White Blood Cells, Urine 0-2 /hpf (0-5)
[2019-02-28 18:26] LABS: Albumin, Blood 3.4 g/dL (3.4-5.0); Bilirubin, Total 0.8 mg/dL (0.1-1.0); Calcium, Blood 9.2 mg/dL (8.5-10.1); Creatinine, Blood 1.2 mg/dL (0.40-1.00); Globulin, Blood 3.4 g/dL (2.2-4.0); Potassium, Blood 3.9 mmol/L (3.5-5.5); Thyroid Stimulating Hormone 0.636 uIU/mL (0.360-4.800); Total Protein, Blood 6.8 g/dL (6.4-8.2)
[2019-02-28 20:48] LABS: WBC Count, CSF 1 /mm3 (0-5)
[2019-02-28 20:49] LABS: Appearance, CSF Clear (Clear); Color, CSF No Color (No Color)
[2019-02-28 20:50] LABS: RBC Count, CSF 6 /mm3 (0-0); WBC Count, CSF 2 /mm3 (0-5)
[2019-02-28 20:51] LABS: Appearance, CSF Clear (Clear); Color, CSF No Color (No Color)
[2019-02-28 21:01] LABS: Glucose, CSF 130 mg/dL (40-70)
[2019-02-28 21:28] LABS: RBC Count, CSF 0 /mm3 (0-0)
--- NOTE | 2019-02-28 23:10 | NUR ---
REPORT CALLED TO LIBORIO HERNANDEZ. AWAITING PT ARRIVAL AT THIS TIME.
[2019-02-28 23:56] LABS: Cryptococcus Neoformans/Gattii Not Detected (NOT DETECT); Enterovirus Not Detected (NOT DETECT); Escherichia Coli K1 Not Detected (NOT DETECT); Haemophilus Influenza Not Detected (NOT DETECT); Herpes Simplex Virus 1 Not Detected (NOT DETECT); Herpes Simplex Virus 2 Not Detected (NOT DETECT); Human Herpesvirus 6 Not Detected (NOT DETECT); Human Parechovirus Not Detected (NOT DETECT); Listeria Monocytogenes Not Detected (NOT DETECT); Neisseria Meningitidis Not Detected (NOT DETECT); Streptococcus Agalactiae Not Detected (NOT DETECT); Streptococcus Pneumoniae Not Detected (NOT DETECT); Varicella Zoster Virus Not Detected (NOT DETECT)
--- NOTE | 2019-03-01 01:23 | NUR ---
Pt arrival Pt arrived to PCU at approx 2315 on gurney with YueRN at bedside. Pt presents with nausea and clutching emesis bag. Pt dry heaving during slider transfer onto PCU bed. Tele placed and showing Sinus tachycardia at 104-115. Pt vomiting dark liquid emesis and complaining of abd pain in the mid epigastric region. Tenderness and guarding to palp. Abd soft. Pt states "I have been vomiting for 3 days. Bladder scanned - 325 ml retention. Vitals show low grade temp and htn, otherwise stable. Reglan given per orders with effect. Pt alert and oriented to person, place, event, family and following directions although with mildly inapropriate responses of laughter. at bedside during admission and states that pt has been "off for a few days". Pt with recent fall approx 1 mo ago requiring hip surgery for Lhip fx. Pts states "she fell and I think she hit her head during that fall". This RN at bedside when pt states "It's coming, that feeling is coming" pt unable to elaborate, becomes unresponsive for approx 10 seconds (is breathing and with pulse) this RN and linux devops engineer at bedside during entire event. after event, pt states "this happens to me now". Pt's husbands states "Heidi has been spacing off this like lately". Call made to provider for PRN BP med for HTN and to update on event. Orders recieved for labatolol 10mg IV x1 now. Given per orders and BP lowers as documented. IV fluids infusing per orders, ABx given per orders. Pt is two person moderate transfer to [facility]. Pt voided 400 mls foul smelling cloudy urine. Resp panel collected and sent to lab. awaiting results. to stay at bedside this night; provided with linens and recliner. See admission assessment for detailed systems assessment. Will continue to monitor. Bed low and locked, call light in reach, bed alarm set.
[2019-03-01 02:07] LABS: Hematocrit 36.1 % (33.0-51.0); Hemoglobin 11.5 g/dL (11.5-16.0); Mean Corpuscular HGB 25.8 pg (26.0-34.0); Mean Corpuscular HGB Conc 31.9 g/dL (31.5-36.5); Mean Corpuscular Volume 81 fL (80-100); Mean Platelet Volume 10.2 fL (9.1-12.4); Platelet Count 923 K/mm3 (150-400); RDW Coefficient Variation 15.9 % (11.7-14.2); RDW Standard Deviation 47.4 fL (35.1-46.3); Red Blood Cell Count 4.45 M/mm3 (3.80-5.20); White Blood Cell Count 17.68 K/mm3 (4.00-11.30)
[2019-03-01 02:26] LABS: Alanine Aminotransfer (ALT/SGP 23 U/L (12-78); Albumin, Blood 3.3 g/dL (3.4-5.0); Alk Phos 124 U/L (50-136); Anion Gap 8 mmol/L (6-16); Aspartate Aminotrans (AST/SGOT 14 U/L (12-37); Bilirubin, Total 0.5 mg/dL (0.1-1.0); Blood Urea Nitrogen 25 mg/dL (8-24); CO2, Blood 26 mmol/L (21-32); Calcium, Blood 8.5 mg/dL (8.5-10.1); Chloride, Blood 101 mmol/L (98-108); Creatinine, Blood 0.96 mg/dL (0.40-1.00); Globulin, Blood 3.3 g/dL (2.2-4.0); Glomerular Filtration Rate >60 (60-); Glucose, Blood 275 mg/dL (70-99); Potassium, Blood 3.3 mmol/L (3.5-5.5); Sodium, Blood 135 mmol/L (136-145); Total Protein, Blood 6.6 g/dL (6.4-8.2)
[2019-03-01 02:27] LABS: Troponin I 0.056 ng/mL (0.000-0.040)
[2019-03-01 02:28] LABS: Adenovirus Not Detected (NOT DETECT); Bordetella pertussis Not Detected (NOT DETECT); Chlamydophila pneumoniae Not Detected (NOT DETECT); Coronavirus 229E Not Detected (NOT DETECT); Coronavirus HKU1 Not Detected (NOT DETECT); Coronavirus NL63 Not Detected (NOT DETECT); Coronavirus OC43 Not Detected (NOT DETECT); Human Metapneumovirus Not Detected (NOT DETECT); Human Rhinovirus/Enterovirus Not Detected (NOT DETECT); Influenza A Not Detected (NOT DETECT); Influenza A/2009-H1 Not Detected (NOT DETECT); Influenza A/H1 Not Detected (NOT DETECT); Influenza A/H3 Not Detected (NOT DETECT); Influenza B Not Detected (NOT DETECT); Mycoplasma pneumoniae Not Detected (NOT DETECT); Parainfluenza Virus 1 Not Detected (NOT DETECT); Parainfluenza Virus 2 Not Detected (NOT DETECT); Parainfluenza Virus 3 Not Detected (NOT DETECT); Parainfluenza Virus 4 Not Detected (NOT DETECT); Respiratory Syncytial Virus Not Detected (NOT DETECT)
--- NOTE | 2019-03-01 06:02 | NUR ---
SHIFT SUMMARY No acute changes this shift. See previous note for detailed events of admission. VSS. Pt able to sleep from approx 0200 to present. Arrousable to verbal and touch. DNR band in place. remains at bedside. Breathing even and unlabored on RA. Will continue to monitor until day RN assumes care.
--- NOTE | 2019-03-01 09:16 | NUR ---
ASSUMED CARE OF PATIENT AT 0715 WITH ROLAND KHAN, LIBORIO. HAS DESCRIBED PERIODS OF DISORIENTATATION HAPPENING WITH PATIENT FOR SEVERAL WEEKS. WHEN ASKED ABOUT NEW MEDICATIONS, HE REPORTS THEY WERE LAST CHANGED 01/30/19. BP TAKEN ON BOTH ARMS. RIGHT ARM IS 155/46 AND LEFT ARM IS 138/74. ECHO COMPLETED BY ALBERTO. WILL PERFORM ORTHOSTATIC BP
[2019-03-01 10:25] LABS: Troponin I 0.048 ng/mL (0.000-0.040)
--- NOTE | 2019-03-01 10:26 | NUR ---
MD VISIT DR. GUSTAFSON IN. PATIENT HAD ANOTHER EPISODE OF "PASSING OUT" DESCRIBED BY . ORDER FOR CYMBALTA NOW AND WILL ORDER MRI
--- NOTE | 2019-03-01 11:29 | NUR ---
Echocardiogram performed.
[2019-03-02 03:34] LABS: BASOPHILS ABSOLUTE AUTO 0.14 K/mm3 (0.00-0.23); BASOPHILS PERCENT AUTO 1 % (0-2); EOSINOPHILS ABSOLUTE AUTO 0.08 K/mm3 (0.00-0.68); EOSINOPHILS PERCENT AUTO 1 % (0-6); Hematocrit 36.1 % (33.0-51.0); Hemoglobin 11.5 g/dL (11.5-16.0); IMMATURE GRAN ABSOLUTE AUTO 0.03 K/mm3 (0.00-0.10); IMMATURE GRAN PERCENT AUTO 0 % (0-1); LYMPHOCYTES ABSOLUTE AUTO 2.05 K/mm3 (0.84-5.20); LYMPHOCYTES PERCENT AUTO 19 % (21-46); MONOCYTES ABSOLUTE AUTO 0.96 K/mm3 (0.16-1.47); MONOCYTES PERCENT AUTO 9 % (4-13); Mean Corpuscular HGB 25.7 pg (26.0-34.0); Mean Corpuscular HGB Conc 31.9 g/dL (31.5-36.5); Mean Corpuscular Volume 81 fL (80-100); Mean Platelet Volume 10.3 fL (9.1-12.4); NEUTROPHILS ABSOLUTE AUTO 7.57 K/mm3 (1.96-9.15); NEUTROPHILS PERCENT AUTO 70 % (41-73); Platelet Count 844 K/mm3 (150-400); RDW Coefficient Variation 15.9 % (11.7-14.2); RDW Standard Deviation 46.9 fL (35.1-46.3); Red Blood Cell Count 4.47 M/mm3 (3.80-5.20); White Blood Cell Count 10.83 K/mm3 (4.00-11.30)
[2019-03-02 03:54] LABS: Anion Gap 9 mmol/L (6-16); Blood Urea Nitrogen 16 mg/dL (8-24); CO2, Blood 23 mmol/L (21-32); Calcium, Blood 8.5 mg/dL (8.5-10.1); Chloride, Blood 103 mmol/L (98-108); Creatinine, Blood 0.89 mg/dL (0.40-1.00); Glomerular Filtration Rate >60 (60-); Glucose, Blood 171 mg/dL (70-99); Potassium, Blood 3.5 mmol/L (3.5-5.5); Prolactin 17.2 ng/mL (2.74-19.64); Sodium, Blood 135 mmol/L (136-145)
--- NOTE | 2019-03-02 05:17 | NUR ---
SHIFT SUMMARY: PT STABLE T/O SHIFT WITHOUT ANY SEIZURE LIKE EPISODES OR SYNCOPE. BP ELEVATED. PT PLEASANT AND COOPERATIVE WITH CARE. APPEARS ANXIOUS AT TIMES WHEN ATTEMPTING TO GET WORDS OUT. HAS A DIFFICULT TIME RECALLING WORDS AND FORMING SENTENCES. OUT OF BED TO BSC WITH MINIMAL ASSIST AND FWW. VOIDING WELL. SALINE LOCKED. POSSIBLE D/C BACK TO [facility] TODAY. AT BEDSIDE AND ACTIVE IN CARE.
--- NOTE | 2019-03-02 12:04 | NUR ---
Transfer to [id number] Report called to Devora CAPONE. Pt aware of move. aware. Continue pot.
--- NOTE | 2019-03-02 16:48 | NUR ---
SHIFT SUMMARY PCU TRANSFER AT LUNCH TIME. PATIENT SETTLED INTO ROOM. AT BEDSIDE. PATIENT DENIES PAIN, NAUSEA, AND SHORTNESS OF BREATH. PATIENT UP ONE ASSIST W/ GAIT BELT AND FWW TO BATHROOM. PT EVAL PENDING. PATIENT A PROBABLE DISCAHRGE TOMORROW. CALL LIGHT IN REACH.
--- NOTE | 2019-03-03 04:41 | NUR ---
SHIFT SUMMARY NO ACUTE CHANGES TO REPORT THIS SHIFT. PT HAS RESTED MOST OF THE NIGHT. PT IS A/O TO SELF AND FOLLOWING DIRECTIONS. PT WAS UNABLE TO TELL ME WHERE SHE WAS OR WHAT DATE IT WAS. PT IS VERY FORGETFUL. SHE HAS CALLED APPROPRIATELY AND HAS NOT ATTEMPTED TO CLIMB OOB WITHOUT ASSISTANCE. VITALS HAVE BEEN STABLE. PT DENIES PAIN. ASSESSMENT UNCHANGED THIS SHIFT. POSSIBLE DC TODAY. BED IN LOWEST POSITION, CALL LIGHT WITHIN REACH. WILL CONTINUE TO MONITOR AND REPORT TO ONCOMING RN.
[2019-03-03] MEDS ORDERED: ACET325 PO (13:50)
[2019-03-03] MEDS ORDERED: BUSP5 PO (13:51)
[2019-03-03] MEDS ORDERED: ENOX40I SC (13:52)
--- NOTE | 2019-03-03 15:10 | NUR ---
REPORT CALLED TO CHEYENNE WHITTINGTON REPORT CALLED TO CHEYENNE WHITTINGTON NURSE, KWASI. NO FURTHER QUESTIONS REQUIRED AT THIS TIME. WILL CONTINUE TO MONITOR UNTIL PT IS DC'ED.
--- NOTE | 2019-03-03 17:21 | NUR ---
PT DISCHARGED AT 1500. PT DISCAHRGED IN STABLE CONDITION WITH VSS. REPORT PREVIOUSLY CALLED TO CHEYENNE WHITTINGTON. PT TRANSPORTED VIA [facility]. NO CHANGES IN ASSESSMENT PRIOR TO DC.
== END 2019-03-03 17:10 | DRG 897 ==
LOC: ER 17:09 → PCU 21:47 → MEDS 03-02 12:30
PROVIDERS: Emergency Medicine; Internal Medicine; ADMIT Internal Medicine
DX: F19.939 Other psychoactive substance use, unspecified with withdrawal, unspecified (principal); N17.9 Acute kidney failure, unspecified; G93.40 Encephalopathy, unspecified; K86.1 Other chronic pancreatitis; E87.1 Hypo-osmolality and hyponatremia; E86.0 Dehydration; F44.9 Dissociative and conversion disorder, unspecified; I12.9 Hypertensive chronic kidney disease with stage 1 through stage 4 chronic kidney disease, or unspecified chronic kidney disease; E11.22 Type 2 diabetes mellitus with diabetic chronic kidney disease; N18.3 Chronic kidney disease, stage 3 (moderate); D47.3 Essential (hemorrhagic) thrombocythemia; D46.9 Myelodysplastic syndrome, unspecified; F03.90 Unspecified dementia, unspecified severity, without behavioral disturbance, psychotic disturbance, mood disturbance, and anxiety; E78.5 Hyperlipidemia, unspecified; Z95.1 Presence of aortocoronary bypass graft; Z87.81 Personal history of (healed) traumatic fracture; Z86.73 Personal history of transient ischemic attack (TIA), and cerebral infarction without residual deficits; I25.10 Atherosclerotic heart disease of native coronary artery without angina pectoris; E03.9 Hypothyroidism, unspecified; I48.91 Unspecified atrial fibrillation; Z66 Do not resuscitate; T43.225A Adverse effect of selective serotonin reuptake inhibitors, initial encounter; E11.65 Type 2 diabetes mellitus with hyperglycemia; I45.81 Long QT syndrome; I25.2 Old myocardial infarction; F41.9 Anxiety disorder, unspecified; Z68.30 Body mass index [BMI] 30.0-30.9, adult
CPT/HCPCS: 0099U; 36415; 62270; 70450; 71045; 71046; 74176; 80048; 80053; 81001; 81003; 82550; 82945; 82947; 83605; 83880; 84146; 84157; 84443; 84484; 85025; 85027; 87070; 87205; 87483; 89051; 93005; 93010; 93306; 96361-59; 96374-59; 96376-59; 97110; 97116; 97162; 97530; 99285-25; C9113; J1650; J1956; J2405; J2765; J7030; P9612

== ENCOUNTER 2019-06-03 19:04 | Observation (INO) | payer MEDICARE, OTHER ==
[~2019-06-03] VITALS: Ht 162.6 cm; Wt 43.7 kg
[~2019-06-03 19:04] MED LIST changes: +BUSP5 PO; +ENOX40I SC; +Fleet Enema132 ML PR
[2019-06-03] MEDS ORDERED: Norco 5-325 Ta1 EACH PO (19:36)
[2019-06-03 19:58] LABS: Source, Urine Catheter
[2019-06-03 20:04] LABS: Appearance, Urine Clear (Clear); Bilirubin, Urine Neg (Neg); Blood, Urine Neg (Neg); Color, Urine Yellow (P-Yellow); Glucose Qualitative, Urine 3+ (Neg); Ketones, Urine 1+ (Neg); Leukocyte Esterase, Urine 1+ (Neg); Nitrite, Urine Neg (Neg); Protein, Urine 1+ (Neg); Specific Gravity, Urine 1.015 (1.003-1.022); Urobilinogen, Urine NORM (Normal)
[2019-06-03 20:12] LABS: Amorphous Light (0-Heavy); Bacteria Many /hpf; Hyaline Casts 0-2 /lpf (0-2); Red Blood Cells, Urine 0-2 /hpf (0-2); Squamous Epithelial Cells Mod /hpf (Few)
[2019-06-03 20:44] LABS: BASOPHILS ABSOLUTE AUTO 0.14 K/mm3 (0.00-0.23); BASOPHILS PERCENT AUTO 1 % (0-2); EOSINOPHILS PERCENT AUTO 0 % (0-6); Hematocrit 25.4 % (33.0-51.0); Hemoglobin 7.7 g/dL (11.5-16.0); IMMATURE GRAN ABSOLUTE AUTO 0.08 K/mm3 (0.00-0.10); IMMATURE GRAN PERCENT AUTO 1 % (0-1); LYMPHOCYTES ABSOLUTE AUTO 1.45 K/mm3 (0.84-5.20); LYMPHOCYTES PERCENT AUTO 10 % (21-46); MONOCYTES ABSOLUTE AUTO 0.91 K/mm3 (0.16-1.47); MONOCYTES PERCENT AUTO 6 % (4-13); Mean Corpuscular HGB 24.4 pg (26.0-34.0); Mean Corpuscular HGB Conc 30.3 g/dL (31.5-36.5); Mean Corpuscular Volume 80 fL (80-100); Mean Platelet Volume 9.8 fL (9.1-12.4); NEUTROPHILS ABSOLUTE AUTO 11.71 K/mm3 (1.96-9.15); NEUTROPHILS PERCENT AUTO 82 % (41-73); RDW Coefficient Variation 16.1 % (11.7-14.2); RDW Standard Deviation 47.3 fL (35.1-46.3); Red Blood Cell Count 3.16 M/mm3 (3.80-5.20); White Blood Cell Count 14.29 K/mm3 (4.00-11.30)
[2019-06-03 20:48] LABS: Platelet Count 1230 K/mm3 (150-400)
[2019-06-03 21:05] LABS: Alanine Aminotransfer (ALT/SGP 12 U/L (12-78); Albumin, Blood 2.8 g/dL (3.4-5.0); Albumin/Globulin Ratio 0.8 (0.8-1.8); Alk Phos 78 U/L (50-136); Anion Gap 7 mmol/L (6-16); Aspartate Aminotrans (AST/SGOT 16 U/L (12-37); Bilirubin, Total 0.2 mg/dL (0.1-1.0); Blood Urea Nitrogen 23 mg/dL (8-24); Bun/Creatinine Ratio 24.9 (12.0-20.0); CO2, Blood 26 mmol/L (21-32); Calcium, Blood 8.7 mg/dL (8.5-10.1); Chloride, Blood 100 mmol/L (98-108); Creatinine, Blood 0.92 mg/dL (0.40-1.00); Globulin, Blood 3.4 g/dL (2.2-4.0); Glomerular Filtration Rate >60 (60-); Glucose, Blood 219 mg/dL (70-99); Potassium, Blood 3.6 mmol/L (3.5-5.5); Sodium, Blood 133 mmol/L (136-145); Total Protein, Blood 6.2 g/dL (6.4-8.2)
[2019-06-04 05:36] LABS: BASOPHILS ABSOLUTE AUTO 0.16 K/mm3 (0.00-0.23); BASOPHILS PERCENT AUTO 1 % (0-2); EOSINOPHILS ABSOLUTE AUTO 0.01 K/mm3 (0.00-0.68); EOSINOPHILS PERCENT AUTO 0 % (0-6); Hematocrit 25.4 % (33.0-51.0); Hemoglobin 7.7 g/dL (11.5-16.0); IMMATURE GRAN ABSOLUTE AUTO 0.11 K/mm3 (0.00-0.10); IMMATURE GRAN PERCENT AUTO 1 % (0-1); LYMPHOCYTES ABSOLUTE AUTO 1.39 K/mm3 (0.84-5.20); LYMPHOCYTES PERCENT AUTO 9 % (21-46); MONOCYTES ABSOLUTE AUTO 0.72 K/mm3 (0.16-1.47); MONOCYTES PERCENT AUTO 5 % (4-13); Mean Corpuscular HGB 24.3 pg (26.0-34.0); Mean Corpuscular HGB Conc 30.3 g/dL (31.5-36.5); Mean Corpuscular Volume 80 fL (80-100); Mean Platelet Volume 9.9 fL (9.1-12.4); NEUTROPHILS ABSOLUTE AUTO 12.87 K/mm3 (1.96-9.15); NEUTROPHILS PERCENT AUTO 84 % (41-73); RDW Coefficient Variation 16.4 % (11.7-14.2); RDW Standard Deviation 47.1 fL (35.1-46.3); Red Blood Cell Count 3.17 M/mm3 (3.80-5.20); White Blood Cell Count 15.26 K/mm3 (4.00-11.30)
--- NOTE | 2019-06-04 05:46 | NUR ---
SHIFT SUMMARY- PT. NEW ADMIT FROM ED DX OF AMS, METABOLIC ENCEPHALOPATHY. PT. ALERT TO SELF, PLEASANTLY CONFUSED. 1 ASSIST TO BSC, PT. IS IMPULSIVE. DENIED ANY PAIN OR DISCOMFORT T/O THE NIGHT. SLEPT COMFORTABLY T/O THE SHIFT, NO APPARENT DISTRESS NOTED. CALL LIGHT WITHIN REACH, SIDE RAILS UP X2, AND BED ALARM ON. WILL CONT TO MONITOR.
[2019-06-04 05:49] LABS: Platelet Count 1247 K/mm3 (150-400)
[2019-06-04 05:55] LABS: Anion Gap 8 mmol/L (6-16); Blood Urea Nitrogen 17 mg/dL (8-24); Bun/Creatinine Ratio 24.6 (12.0-20.0); CO2, Blood 23 mmol/L (21-32); Calcium, Blood 8.1 mg/dL (8.5-10.1); Chloride, Blood 102 mmol/L (98-108); Creatinine, Blood 0.69 mg/dL (0.40-1.00); Glomerular Filtration Rate >60 (60-); Glucose, Blood 283 mg/dL (70-99); Potassium, Blood 3.4 mmol/L (3.5-5.5); Sodium, Blood 133 mmol/L (136-145)
--- NOTE | 2019-06-04 17:34 | NUR ---
SUMMARY PT SITTING UP IN BED VISITING WITH HER SPOUSE, HAS BEEN PLEASANTLY CONFUSED T/O THE DAY, HAS WORKED WITH PT/OT/ST, IS NOW ON A PUREE DIET, TASHA WELL, UP WITH 1P ASSIST AND THE WALKER, VSS, NO COMPLAINTS, WILL CONT TO MONITOR
--- NOTE | 2019-06-04 18:28 | NUR ---
Initial spiritual care note: Mrs. Arango is pleasantly confused. Her of 58 years, Suhas, was at [facility]. I praised them both for their obvious love and devotion. With this, eFstus began to weep, but could not explain why. We prayed together for healing and angela. Both pt and spouse tearful with prayer. Suhas seemed to want to talk, but was hesitant to do so in front of Festus. He did not wish to leave room. I offered continued prayer and children's counselor if desired. I will remain available.
--- NOTE | 2019-06-05 06:27 | NUR ---
SHIFT SUMMARY PATIENT VERY PLEASANT TO WORK WITH OVERNIGHT. COMPLAINED OF PAIN IN HER BACK AND RIGHT HIP, MEDICATED PER EMAR AND KPAD PROVIDED FOR PAIN RELIEF. IV PATENT AND FLUSHED. BED IN LOWEST POSITION WITH WHEELS LOCKED AND ALARM ON. CALL LIGHT WITHIN REACH. REPORT GIVEN TO ONCJERRY CAPONE.
[2019-06-05 10:12] LABS: BASOPHILS PERCENT AUTO 1 % (0-2); EOSINOPHILS ABSOLUTE AUTO 0.11 K/mm3 (0.00-0.68); EOSINOPHILS PERCENT AUTO 1 % (0-6); Hematocrit 28.4 % (33.0-51.0); Hemoglobin 8.6 g/dL (11.5-16.0); IMMATURE GRAN ABSOLUTE AUTO 0.08 K/mm3 (0.00-0.10); IMMATURE GRAN PERCENT AUTO 1 % (0-1); LYMPHOCYTES ABSOLUTE AUTO 1.65 K/mm3 (0.84-5.20); LYMPHOCYTES PERCENT AUTO 11 % (21-46); MONOCYTES ABSOLUTE AUTO 0.93 K/mm3 (0.16-1.47); MONOCYTES PERCENT AUTO 6 % (4-13); Mean Corpuscular HGB 24.7 pg (26.0-34.0); Mean Corpuscular HGB Conc 30.3 g/dL (31.5-36.5); Mean Corpuscular Volume 82 fL (80-100); Mean Platelet Volume 9.7 fL (9.1-12.4); NEUTROPHILS ABSOLUTE AUTO 11.75 K/mm3 (1.96-9.15); NEUTROPHILS PERCENT AUTO 80 % (41-73); RDW Coefficient Variation 16.5 % (11.7-14.2); RDW Standard Deviation 49.1 fL (35.1-46.3); Red Blood Cell Count 3.48 M/mm3 (3.80-5.20); White Blood Cell Count 14.72 K/mm3 (4.00-11.30)
[2019-06-05 10:14] LABS: Platelet Count 1293 K/mm3 (150-400)
--- NOTE | 2019-06-05 10:36 | NUR ---
called dr ramos [id number], he said he was aware and to continue with the prescribed treatment
[2019-06-05 10:48] LABS: Percent Saturation 5.3 % (15.0-50.0)
[2019-06-05 11:18] LABS: Thyroid Stimulating Hormone 1.89 uIU/mL (0.360-4.800)
--- NOTE | 2019-06-05 18:34 | NUR ---
Spiritual care note: Per RN request, I met with Festus and her , Chidi, after hospice was recommended by physician. Both were tearful and very grateful for spiritual student counsellor and prayer. This is a sonny couple. Festus appears confused and weak. We spoke about their life together and their beautiful children. Festus admits to being fearful and says that leaving Chidi is the "hardest part." Encouraged savoring each day and living in the here and now. We have an easy rapport. I checked on them several times throughout the day. [employer] Architect services will remain available.
--- NOTE | 2019-06-05 18:39 | NUR ---
a+o, changed over to comfort care, going home on hospice, in to visit, family at bedside most of the day, 2 units of prbc infused along with iron, iv positional, rm air bed in low position hob raised for pt comfort, spoke to many staff members seeking guidance r/hospice/comfort care/treatment, will continue to monitor and treat until share bsr with pt and noc shift nurse
--- NOTE | 2019-06-05 21:30 | NUR ---
PATIENT WAS EXPERIENCING PAIN IN HER RIGHT HIP, MEDICATED PER EMAR AND HEATING PAD APPLIED. PAIN MANAGEMENT MEASURES EFFECTIVE IN REDUCING HER PAIN. ROOMING IN.
--- NOTE | 2019-06-05 23:18 | NUR ---
PATIENT SLEEPING COMFORTABLY AND SOUNDLY. SLEEPING ON BENCH NEXT TO THE BED.
--- NOTE | 2019-06-06 01:09 | NUR ---
PATIENT SLEEPING SOUNDLY IN HER BED. ROOMING IN AND SLEEPING ON THE BENCH NEXT TO THE BED.
[2019-06-06 05:15] LABS: BASOPHILS ABSOLUTE AUTO 0.13 K/mm3 (0.00-0.23); BASOPHILS PERCENT AUTO 1 % (0-2); EOSINOPHILS ABSOLUTE AUTO 0.11 K/mm3 (0.00-0.68); EOSINOPHILS PERCENT AUTO 0 % (0-6); Hematocrit 34.9 % (33.0-51.0); Hemoglobin 11.1 g/dL (11.5-16.0); IMMATURE GRAN ABSOLUTE AUTO 0.16 K/mm3 (0.00-0.10); IMMATURE GRAN PERCENT AUTO 1 % (0-1); LYMPHOCYTES ABSOLUTE AUTO 1.94 K/mm3 (0.84-5.20); LYMPHOCYTES PERCENT AUTO 7 % (21-46); MONOCYTES ABSOLUTE AUTO 1.84 K/mm3 (0.16-1.47); MONOCYTES PERCENT AUTO 7 % (4-13); Mean Corpuscular HGB Conc 31.8 g/dL (31.5-36.5); Mean Corpuscular Volume 82 fL (80-100); Mean Platelet Volume 9.6 fL (9.1-12.4); NEUTROPHILS PERCENT AUTO 84 % (41-73); RDW Coefficient Variation 15.7 % (11.7-14.2); RDW Standard Deviation 46.8 fL (35.1-46.3); Red Blood Cell Count 4.27 M/mm3 (3.80-5.20); White Blood Cell Count 26.48 K/mm3 (4.00-11.30)
[2019-06-06 05:39] LABS: Platelet Count 1113 K/mm3 (150-400)
[2019-06-06 05:43] LABS: Anion Gap 6 mmol/L (6-16); Blood Urea Nitrogen 11 mg/dL (8-24); CO2, Blood 28 mmol/L (21-32); Calcium, Blood 8.6 mg/dL (8.5-10.1); Chloride, Blood 100 mmol/L (98-108); Creatinine, Blood 0.73 mg/dL (0.40-1.00); Glomerular Filtration Rate >60 (60-); Glucose, Blood 253 mg/dL (70-99); Potassium, Blood 3.5 mmol/L (3.5-5.5); Sodium, Blood 134 mmol/L (136-145)
--- NOTE | 2019-06-06 05:58 | NUR ---
PATIENT RESTING IN BED. SLIGHTLY AWAKE BUT GROGGY. PATIENT'S AT BEDSIDE.
--- NOTE | 2019-06-06 06:32 | NUR ---
SHIFT SUMMARY PATIENT RESTED IN HER BED MOST OF THE NIGHT, EXCEPT FOR WHEN SHE NEEDED TO GET UP AND USED THE BATHROOM. HER IS ROOMING IN AND IS ASSISTING WITH HER ADL'S. BED IN LOWEST POSITION WITH WHEELS LOCKED. CALL LIGHT WITHIN REACH. REPORT GIVEN TO ONCOMING RN.
[2019-06-06] MEDS ORDERED: Ativan1 MG PO (08:46)
[2019-06-06] MEDS ORDERED: MORP20L SL (08:47)
--- NOTE | 2019-06-06 13:46 | NUR ---
reviewed medication, discharge instructions, treatments, visit, accomplishments and expectations with pt and family, removed IV, assisted into wc, took to car and assisted into, alert and orintated, driving home, prescriptions faxed to [facility] as directed
== END 2019-06-06 13:41 | disposition hospice, home (50) ==
LOC: ER 19:04 → MEDS 19:05
PROVIDERS: Emergency Medicine; Family Medicine; Internal Medicine Hematology & Oncology; Nurse Practitioner Acute Care; ADMIT Internal Medicine
DX: G92 Toxic encephalopathy (principal); R13.10 Dysphagia, unspecified; E03.9 Hypothyroidism, unspecified; Z79.01 Long term (current) use of anticoagulants; D47.3 Essential (hemorrhagic) thrombocythemia; C94.6 Myelodysplastic disease, not elsewhere classified; E86.0 Dehydration; D64.9 Anemia, unspecified; F03.90 Unspecified dementia, unspecified severity, without behavioral disturbance, psychotic disturbance, mood disturbance, and anxiety; E11.22 Type 2 diabetes mellitus with diabetic chronic kidney disease; I12.9 Hypertensive chronic kidney disease with stage 1 through stage 4 chronic kidney disease, or unspecified chronic kidney disease; N18.3 Chronic kidney disease, stage 3 (moderate); F32.9 Major depressive disorder, single episode, unspecified; E11.51 Type 2 diabetes mellitus with diabetic peripheral angiopathy without gangrene; M79.7 Fibromyalgia; I25.10 Atherosclerotic heart disease of native coronary artery without angina pectoris; I25.2 Old myocardial infarction; K86.1 Other chronic pancreatitis; Z88.8 Allergy status to other drugs, medicaments and biological substances; Z91.041 Radiographic dye allergy status; Z88.0 Allergy status to penicillin; Z79.4 Long term (current) use of insulin; Z74.09 Other reduced mobility
CPT/HCPCS: 36415; 36430; 70450; 71046; 80048; 80053; 81001; 82140; 82607; 82728; 82746; 82947; 83540; 83550; 84425; 84443; 85025; 85730; 86850; 86900; 86901; 86902; 86922; 87086; 92526; 92610; 93005; 93010; 96360; 96361; 96372; 96374; 96375; 96376; 97162; 97166; 97530; 99285-25; A9270; A9270-GY; G0378; J1650; J2916; J3480; J7030; P9016; P9612